=== PATIENT | male | born 1955 | race Two or more races ===

== ENCOUNTER 2023-05-30 19:42 | Emergency (ER) | payer BC, MEDICARE ==
[~2023-05-30] VITALS: Ht 170.2 cm; Wt 79.5 kg
[2023-05-30 19:52] VITALS: BP 195/96; RESP 18; O2SAT 97
[2023-05-30] MEDS ORDERED: cloNIDine HCL 0.1 MG TAB ONE (20:10)
[2023-05-30] MEDS ORDERED: cloNIDine HCL 0.1 MG TAB PO ONE (20:15)
[2023-05-30] MEDS ORDERED: METOCLOPRAMIDE HCL 5MG/ml INJ 2ml VIAL IV ONE (20:45)
[2023-05-30] MEDS ORDERED: MAGNESIUM SULFATE 1GM/100ML 100 ML IV ONE (20:45)
[2023-05-30] MEDS ORDERED: diphenhdrAMINE HCL 50 MG/1 ML VL IV ONE (20:45)
[2023-05-30 21:41] LABS: Basophils # (auto) 0.1 10 ^3/uL (0-0.2); Basophils % (auto) 0.7 % (0.0-2.0); Eosinophils # (auto) 0.2 10 ^3/uL (0-0.8); Eosinophils % (auto) 1.8 % (0.0-7.0); Hematocrit 43.9 % (41.0-53.0); Lymphocytes # (auto) 1.9 10 ^3/uL (0.4-5.4); Lymphocytes % (auto) 17.7 % (10.0-50.0); Mean Corpuscular Hemoglobin 30.1 pg (28.0-32.0); Mean Corpuscular Hgb Conc. 34.2 g/dL (32.0-36.0); Mean Corpuscular Volume 87.9 fL (80.0-100.0); Monocytes # (auto) 0.6 10 ^3/uL (0-1.3); Monocytes % (auto) 5.9 % (0.0-12.0); Neutrophils # (auto) 7.9 10 ^3/uL (1.6-8.6); Neutrophils % (auto) 73.9 % (37.0-80.0); Nucleated Red Blood Cells % 0.1 %; Red Cell Distribution Width 13.6 % (11.8-14.3); White Blood Cell 10.7 10^3/uL (4.4-10.8)
[2023-05-30 21:58] LABS: Alanine Aminotransferase 24 U/L (7-40); Albumin 4.5 g/dL (3.2-4.8); Alkaline Phosphatase 99 U/L (46-116); Anion Gap 8 (5-15); Aspartate Aminotransferase 13 U/L (13-40); BUN/Creatinine Ratio 8.8 (10.0-20.0); Bilirubin, Total 0.4 mg/dL (0.2-1.0); Blood Urea Nitrogen 12 mg/dL (9-23); Calcium 9.5 mg/dL (8.5-10.1); Carbon Dioxide 26 mmol/L (20-30); Chloride 103 mmol/L (98-107); Glucose 191 mg/dL (74-106); Sodium 137 mmol/L (136-145); Total Protein 7.6 g/dL (5.7-8.2)
[2023-05-30] MEDS ORDERED: hydrALAZINE HCL 20 MG/ML VL IV ONE (23:15)
[2023-05-30 23:27] VITALS: PULSE 56
== END 2023-05-31 02:41 | disposition left against medical advice (07) ==
LOC: ER 19:42
DX: R51.9 Headache, unspecified (principal); R11.0 Nausea; I10 Essential (primary) hypertension; Z88.8 Allergy status to other drugs, medicaments and biological substances
CPT/HCPCS: 36415; 70450; 80053; 85025; 93005

== ENCOUNTER → 2023-06-14 | Outpatient (CLI) | payer MEDICARE, BC | END | disposition home or self-care (01) | LOC: Rad HDHVI 13:03 | PROVIDERS: ATTEND Internal Medicine Cardiovascular Disease | DX: I10 Essential (primary) hypertension (principal) | CPT/HCPCS: 93306 ==

== ENCOUNTER → 2023-06-21 | Outpatient (CLI) | payer MEDICARE, BC | END | disposition home or self-care (01) | LOC: Rad HDHVI 12:59 | PROVIDERS: ATTEND Internal Medicine Cardiovascular Disease | DX: I10 Essential (primary) hypertension (principal) | CPT/HCPCS: 93880 ==

== ENCOUNTER → 2023-06-23 | Outpatient (CLI) | payer MEDICARE, BC ==
[~2023-06-23] VITALS: Ht 170.2 cm; Wt 83.9 kg
== END | disposition home or self-care (01) ==
LOC: Rad HDHVI 09:24
PROVIDERS: ATTEND Internal Medicine Cardiovascular Disease
DX: I10 Essential (primary) hypertension (principal); E11.9 Type 2 diabetes mellitus without complications; E78.00 Pure hypercholesterolemia, unspecified
CPT/HCPCS: 78452; 93017; 96374; A9500

== ENCOUNTER 2023-08-10 12:53 | Inpatient (IN) | payer MEDICARE, BC ==
[~2023-08-10] VITALS: Ht 170.2 cm; Wt 84.1 kg
[2023-08-10] MEDS ORDERED: IOHEXOL 350 MG/ML 100ML IJ ONE (13:13)
[2023-08-10 14:22] LABS: Basophils # (auto) 0.1 10 ^3/uL (0-0.2); Basophils % (auto) 0.7 % (0.0-2.0); Eosinophils # (auto) 0.3 10 ^3/uL (0-0.8); Eosinophils % (auto) 3.7 % (0.0-7.0); Hematocrit 43.4 % (41.0-53.0); Hemoglobin 14.7 g/dL (13.5-17.5); Lymphocytes % (auto) 26.6 % (10.0-50.0); Mean Corpuscular Hemoglobin 29.6 pg (28.0-32.0); Mean Corpuscular Hgb Conc. 33.8 g/dL (32.0-36.0); Mean Corpuscular Volume 87.5 fL (80.0-100.0); Monocytes # (auto) 0.7 10 ^3/uL (0-1.3); Monocytes % (auto) 8.9 % (0.0-12.0); Neutrophils # (auto) 4.6 10 ^3/uL (1.6-8.6); Neutrophils % (auto) 60.1 % (37.0-80.0); Nucleated Red Blood Cells % 0.1 %; Red Blood Cells 4.96 10^6/uL (4.5-5.90); Red Cell Distribution Width 13.8 % (11.8-14.3); White Blood Cell 7.6 10^3/uL (4.4-10.8)
[2023-08-10 14:41] LABS: Alanine Aminotransferase 21 U/L (7-40); Albumin 4.3 g/dL (3.2-4.8); Alkaline Phosphatase 101 U/L (46-116); Anion Gap 7 (5-15); Aspartate Aminotransferase 12 U/L (13-40); BUN/Creatinine Ratio 12.8 (10.0-20.0); Blood Urea Nitrogen 15 mg/dL (9-23); Calcium 8.7 mg/dL (8.7-10.4); Carbon Dioxide 26 mmol/L (20-30); Chloride 102 mmol/L (98-107); Glucose 177 mg/dL (74-106); Magnesium 1.9 mg/dL (1.6-2.6); Potassium 4.1 mmol/L (3.5-5.1); Sodium 135 mmol/L (136-145)
[2023-08-10 14:42] LABS: Bilirubin, Total 0.4 mg/dL (0.2-1.0); Total Protein 6.6 g/dL (5.7-8.2)
[2023-08-10 14:43] LABS: Partial Thromboplastin Time 29.4 SEC (24.5-34.5); Prothrombin Time 10.5 sec (9.3-11.8)
[2023-08-10] MEDS ORDERED: ASPirin 325 MG TAB PO ONE (14:45)
[2023-08-10 14:52] LABS: Lactic Acid w/Reflex 2.5 mmol/L (0.4-2.0)
[2023-08-10] MEDS ORDERED: SODIUM CHLORIDE 0.9% 1,000 ML IV ONE (15:15)
[2023-08-10] MEDS ORDERED: METH5TAB98 PO (15:35)
[2023-08-10] MEDS ORDERED: PANT40T PO (15:35)
[2023-08-10] MEDS ORDERED: PRAV20TA3 PO (15:35)
[2023-08-10] MEDS ORDERED: METO-289 PO (15:35)
[2023-08-10] MEDS ORDERED: OLME1TAB71 PO (15:35)
[2023-08-10] MEDS ORDERED: METF-370 PO (15:35)
[2023-08-10] MEDS ORDERED: MORPHINE SULFATE INJ 2 MG/ml SYRG IV PRN (17:30)
[2023-08-10] MEDS ORDERED: NITROGLYCERIN 0.4 MG SL TAB SL PRN (17:30)
[2023-08-10] MEDS ORDERED: SODIUM CHLORIDE 0.9% 1,000 ML IV SCH (17:30)
[2023-08-10] MEDS ORDERED: LORazepam 2MG/ML-1ML VIAL IV PRN (21:00)
[2023-08-10] MEDS ORDERED: PRAVASTATIN SODIUM 20 MG TAB PO SCH (22:00)
[2023-08-10 22:10] LABS: Triglycerides 565 mg/dL (< 150)
[2023-08-10 22:12] LABS: Cholesterol 190 mg/dL (< 200); HDL Cholesterol 35 mg/dL (40-59)
[2023-08-11] VITALS (9 sets, daily range): BP systolic 130–152; BP diastolic 74–93; PULSE 62–79; RESP 17–18; TEMP 96.3–98.1; O2SAT 95–100
[2023-08-11] MEDS ORDERED: S-AD400T6 OR (02:20)
[2023-08-11] MEDS ORDERED: OLME20TA53 PO (02:20)
[2023-08-11] MEDS ORDERED: GINK120C3 PO (02:20)
[2023-08-11] MEDS ORDERED: EZET-10 PO (02:20)
[2023-08-11] MEDS ORDERED: TURM500C3 OR (02:20)
[2023-08-11] MEDS ORDERED: CHOL500046 PO (02:20)
[2023-08-11] MEDS ORDERED: ALPR0.254 PO (02:20)
[2023-08-11] MEDS ORDERED: COEN400C8 OR (02:20)
[2023-08-11] MEDS ORDERED: CLOP75TA28 PO (02:20)
[2023-08-11] MEDS ORDERED: TRAM50TA2 PO (02:20)
[2023-08-11 05:48] LABS: Basophils # (auto) 0 10 ^3/uL (0-0.2); Basophils % (auto) 0.5 % (0.0-2.0); Eosinophils # (auto) 0.4 10 ^3/uL (0-0.8); Eosinophils % (auto) 4.5 % (0.0-7.0); Hematocrit 43.5 % (41.0-53.0); Lymphocytes # (auto) 2.9 10 ^3/uL (0.4-5.4); Lymphocytes % (auto) 34.7 % (10.0-50.0); Mean Corpuscular Hemoglobin 29.8 pg (28.0-32.0); Mean Corpuscular Hgb Conc. 34.4 g/dL (32.0-36.0); Mean Corpuscular Volume 86.8 fL (80.0-100.0); Monocytes # (auto) 0.9 10 ^3/uL (0-1.3); Monocytes % (auto) 10.7 % (0.0-12.0); Neutrophils # (auto) 4.1 10 ^3/uL (1.6-8.6); Neutrophils % (auto) 49.6 % (37.0-80.0); Nucleated Red Blood Cells % 0.1 %; Red Blood Cells 5.02 10^6/uL (4.5-5.90); Red Cell Distribution Width 13.4 % (11.8-14.3); White Blood Cell 8.4 10^3/uL (4.4-10.8)
[2023-08-11 06:14] LABS: Alanine Aminotransferase 18 U/L (7-40); Albumin 4.2 g/dL (3.2-4.8); Alkaline Phosphatase 93 U/L (46-116); Anion Gap 8 (5-15); Aspartate Aminotransferase 12 U/L (13-40); BUN/Creatinine Ratio 8.9 (10.0-20.0); Blood Urea Nitrogen 11 mg/dL (9-23); Calcium 9.1 mg/dL (8.5-10.1); Carbon Dioxide 27 mmol/L (20-30); Chloride 105 mmol/L (98-107); Glucose 107 mg/dL (74-106); Potassium 4.1 mmol/L (3.5-5.1); Sodium 140 mmol/L (136-145)
[2023-08-11 06:15] LABS: Bilirubin, Total 0.5 mg/dL (0.2-1.0); Total Protein 6.7 g/dL (5.7-8.2)
[2023-08-11] MEDS ORDERED: PANTOPRAZOLE 40 MG TAB PO SCH (10:00)
[2023-08-11] MEDS ORDERED: ASPirin 81 mg TAB PO SCH (10:00)
[2023-08-11] MEDS ORDERED: LOSARTAN POTASSIUM 50 MG TAB PO SCH (10:00)
[2023-08-11] MEDS ORDERED: metFORMIN HYDROCHLORIDE 500 MG TAB PO SCH (10:00)
[2023-08-11] MEDS ORDERED: CLOPIDOGREL BISULFATE 75 MG TAB PO SCH (10:00)
[2023-08-11] MEDS ORDERED: METOPROLOL SUCCINATE XL 50 MG TAB PO SCH (10:00)
== END 2023-08-11 16:05 | disposition home or self-care (01) | DRG 93 ==
LOC: ER 12:53 → TELE 18:00 → TELE-EAST 23:20
PROVIDERS: ADMIT Internal Medicine Cardiovascular Disease; ATTEND Internal Medicine Cardiovascular Disease
DX: R29.810 Facial weakness (principal); G47.10 Hypersomnia, unspecified; R56.9 Unspecified convulsions; G44.009 Cluster headache syndrome, unspecified, not intractable; I10 Essential (primary) hypertension; R26.81 Unsteadiness on feet; R13.10 Dysphagia, unspecified; E11.9 Type 2 diabetes mellitus without complications; E66.9 Obesity, unspecified; E03.9 Hypothyroidism, unspecified; G47.30 Sleep apnea, unspecified; E78.5 Hyperlipidemia, unspecified; F17.200 Nicotine dependence, unspecified, uncomplicated; Z79.02 Long term (current) use of antithrombotics/antiplatelets; Z86.73 Personal history of transient ischemic attack (TIA), and cerebral infarction without residual deficits; Z79.899 Other long term (current) drug therapy; Z68.29 Body mass index [BMI] 29.0-29.9, adult; Z83.3 Family history of diabetes mellitus
CPT/HCPCS: 36415; 70450; 70496; 70551; 71045; 80053; 80061; 83605; 83735; 83880; 84484; 85025; 85610; 85730; 93005; 93886; 96360; G0378

== ENCOUNTER → 2023-09-25 | Outpatient (CLI) | payer MEDICARE, BC ==
[~2023-09-25] MED LIST: ALPR0.254 PO; CHOL500046 PO; CLOP75TA28 PO; COEN400C8 OR; EZET-10 PO; GINK120C3 PO; METF-370 PO; METH5TAB98 PO; METO-289 PO; OLME1TAB71 PO; OLME20TA53 PO; PANT40T PO; S-AD400T6 OR; TRAM50TA2 PO; TURM500C3 OR
[2023-09-25 11:19] VITALS: BP 140/84; PULSE 75
[2023-09-25 11:20] VITALS: BP 133/82; PULSE 77
== END | disposition home or self-care (01) ==
LOC: CHF HDHVI 09:45
PROVIDERS: ATTEND Internal Medicine Cardiovascular Disease
DX: I25.118 Atherosclerotic heart disease of native coronary artery with other forms of angina pectoris (principal); I73.9 Peripheral vascular disease, unspecified; E11.9 Type 2 diabetes mellitus without complications; E78.00 Pure hypercholesterolemia, unspecified; I10 Essential (primary) hypertension; R06.02 Shortness of breath; Z98.61 Coronary angioplasty status
CPT/HCPCS: G0166

== ENCOUNTER → 2023-09-26 | Outpatient (CLI) | payer MEDICARE, BC ==
[2023-09-26 13:31] VITALS: BP 139/81; PULSE 68
[2023-09-26 13:32] VITALS: BP 155/88; PULSE 71
== END | disposition home or self-care (01) ==
LOC: CHF HDHVI 09:53
PROVIDERS: ATTEND Internal Medicine Cardiovascular Disease
DX: I25.118 Atherosclerotic heart disease of native coronary artery with other forms of angina pectoris (principal); I73.9 Peripheral vascular disease, unspecified; E11.9 Type 2 diabetes mellitus without complications; I10 Essential (primary) hypertension; E29.1 Testicular hypofunction; Z79.84 Long term (current) use of oral hypoglycemic drugs; Z79.899 Other long term (current) drug therapy
CPT/HCPCS: G0166

== ENCOUNTER → 2023-09-27 | Outpatient (CLI) | payer MEDICARE, BC ==
[2023-09-27 14:44] VITALS: BP 140/85; PULSE 74
[2023-09-27 14:46] VITALS: BP 140/80; PULSE 76
== END | disposition home or self-care (01) ==
LOC: CHF HDHVI 13:01
PROVIDERS: ATTEND Internal Medicine Cardiovascular Disease
DX: I25.118 Atherosclerotic heart disease of native coronary artery with other forms of angina pectoris (principal); R06.02 Shortness of breath; E11.9 Type 2 diabetes mellitus without complications; I10 Essential (primary) hypertension; E78.00 Pure hypercholesterolemia, unspecified; I73.9 Peripheral vascular disease, unspecified
CPT/HCPCS: G0166

== ENCOUNTER → 2023-09-28 | Outpatient (CLI) | payer MEDICARE, BC ==
[2023-09-28 14:48] VITALS: BP 130/71; PULSE 64
[2023-09-28 14:49] VITALS: BP 122/78; PULSE 65
== END | disposition home or self-care (01) ==
LOC: CHF HDHVI 13:03
PROVIDERS: ATTEND Internal Medicine Cardiovascular Disease
DX: I25.118 Atherosclerotic heart disease of native coronary artery with other forms of angina pectoris (principal); I11.0 Hypertensive heart disease with heart failure; I50.33 Acute on chronic diastolic (congestive) heart failure; E78.00 Pure hypercholesterolemia, unspecified; E11.9 Type 2 diabetes mellitus without complications; I73.9 Peripheral vascular disease, unspecified; R06.02 Shortness of breath; Z95.1 Presence of aortocoronary bypass graft
CPT/HCPCS: G0166

== ENCOUNTER → 2023-09-29 | Outpatient (CLI) | payer MEDICARE, BC ==
[2023-09-29 15:12] VITALS: BP_SYST 120; BP_SYST 130; BP_DIAS 68; BP_DIAS 85; PULSE 65; PULSE 71
== END | disposition home or self-care (01) ==
LOC: CHF HDHVI 13:01
PROVIDERS: ATTEND Internal Medicine Cardiovascular Disease
DX: I11.0 Hypertensive heart disease with heart failure (principal); I50.33 Acute on chronic diastolic (congestive) heart failure; I25.118 Atherosclerotic heart disease of native coronary artery with other forms of angina pectoris; E11.9 Type 2 diabetes mellitus without complications; I73.9 Peripheral vascular disease, unspecified; E78.00 Pure hypercholesterolemia, unspecified
CPT/HCPCS: G0166

== ENCOUNTER → 2023-10-05 | Outpatient (CLI) | payer MEDICARE, BC ==
[2023-10-05 14:06] VITALS: BP 144/84; PULSE 67
[2023-10-05 14:23] VITALS: BP 142/73; PULSE 71
== END | disposition home or self-care (01) ==
LOC: CHF HDHVI 13:10
PROVIDERS: ATTEND Internal Medicine Cardiovascular Disease
DX: I25.118 Atherosclerotic heart disease of native coronary artery with other forms of angina pectoris (principal); I11.0 Hypertensive heart disease with heart failure; I50.33 Acute on chronic diastolic (congestive) heart failure; E78.00 Pure hypercholesterolemia, unspecified; I73.9 Peripheral vascular disease, unspecified; E11.9 Type 2 diabetes mellitus without complications; R06.02 Shortness of breath; Z98.61 Coronary angioplasty status
CPT/HCPCS: G0166

== ENCOUNTER → 2023-10-06 | Outpatient (CLI) | payer MEDICARE, BC ==
[2023-10-06 14:33] VITALS: BP 140/80; PULSE 72
[2023-10-06 14:34] VITALS: BP 140/85; PULSE 68
== END | disposition home or self-care (01) ==
LOC: CHF HDHVI 12:59
PROVIDERS: ATTEND Internal Medicine Cardiovascular Disease
DX: I11.0 Hypertensive heart disease with heart failure (principal); I50.33 Acute on chronic diastolic (congestive) heart failure; I25.118 Atherosclerotic heart disease of native coronary artery with other forms of angina pectoris; E11.9 Type 2 diabetes mellitus without complications; I73.9 Peripheral vascular disease, unspecified; E78.00 Pure hypercholesterolemia, unspecified
CPT/HCPCS: G0166

== ENCOUNTER → 2023-10-09 | Outpatient (CLI) | payer MEDICARE, BC ==
[2023-10-09 15:23] VITALS: BP 148/85; PULSE 66
[2023-10-09 15:24] VITALS: BP 128/80; PULSE 70
== END | disposition home or self-care (01) ==
LOC: CHF HDHVI 12:58
PROVIDERS: ATTEND Internal Medicine Cardiovascular Disease
DX: I11.0 Hypertensive heart disease with heart failure (principal); I50.33 Acute on chronic diastolic (congestive) heart failure; I25.118 Atherosclerotic heart disease of native coronary artery with other forms of angina pectoris; E11.9 Type 2 diabetes mellitus without complications; I73.9 Peripheral vascular disease, unspecified; E78.00 Pure hypercholesterolemia, unspecified
CPT/HCPCS: G0166

== ENCOUNTER → 2023-10-10 | Outpatient (CLI) | payer MEDICARE, BC ==
[2023-10-10 14:49] VITALS: BP 118/81; PULSE 62
[2023-10-10 14:51] VITALS: BP 139/86; PULSE 75
== END | disposition home or self-care (01) ==
LOC: CHF HDHVI 10:35
PROVIDERS: ATTEND Internal Medicine Cardiovascular Disease
DX: I11.0 Hypertensive heart disease with heart failure (principal); I50.33 Acute on chronic diastolic (congestive) heart failure; I25.118 Atherosclerotic heart disease of native coronary artery with other forms of angina pectoris; E11.9 Type 2 diabetes mellitus without complications; E78.00 Pure hypercholesterolemia, unspecified; I73.9 Peripheral vascular disease, unspecified
CPT/HCPCS: G0166

== ENCOUNTER → 2023-10-23 | Outpatient (CLI) | payer MEDICARE, BC ==
[2023-10-23 14:06] VITALS: BP 141/80; PULSE 75
[2023-10-23 14:25] VITALS: BP 142/89; PULSE 78
== END | disposition home or self-care (01) ==
LOC: CHF HDHVI 13:01
PROVIDERS: ATTEND Internal Medicine Cardiovascular Disease
DX: I25.118 Atherosclerotic heart disease of native coronary artery with other forms of angina pectoris (principal); R06.02 Shortness of breath; E11.9 Type 2 diabetes mellitus without complications; Z98.61 Coronary angioplasty status
CPT/HCPCS: G0166

== ENCOUNTER → 2023-10-25 | Outpatient (CLI) | payer MEDICARE, BC ==
[2023-10-25 14:12] VITALS: BP 141/85; PULSE 62
[2023-10-25 14:21] VITALS: BP 160/90; PULSE 68
== END | disposition home or self-care (01) ==
LOC: CHF HDHVI 13:18
PROVIDERS: ATTEND Internal Medicine Cardiovascular Disease
DX: I25.118 Atherosclerotic heart disease of native coronary artery with other forms of angina pectoris (principal); I11.0 Hypertensive heart disease with heart failure; I50.43 Acute on chronic combined systolic (congestive) and diastolic (congestive) heart failure; R07.89 Other chest pain; I25.5 Ischemic cardiomyopathy
CPT/HCPCS: G0166

== ENCOUNTER → 2023-10-26 | Outpatient (CLI) | payer MEDICARE, BC ==
[2023-10-26 14:07] VITALS: BP 145/87; PULSE 68
[2023-10-26 14:08] VITALS: BP 136/82; PULSE 81
== END | disposition home or self-care (01) ==
LOC: CHF HDHVI 12:47
PROVIDERS: ATTEND Internal Medicine Cardiovascular Disease
DX: I25.118 Atherosclerotic heart disease of native coronary artery with other forms of angina pectoris (principal); I10 Essential (primary) hypertension; E11.9 Type 2 diabetes mellitus without complications; I73.9 Peripheral vascular disease, unspecified; E78.00 Pure hypercholesterolemia, unspecified
CPT/HCPCS: G0166

== ENCOUNTER → 2023-10-27 | Outpatient (CLI) | payer MEDICARE, BC ==
[2023-10-27 12:27] VITALS: BP 139/81; PULSE 67
[2023-10-27 13:08] VITALS: BP 148/85; PULSE 66
== END | disposition home or self-care (01) ==
LOC: CHF HDHVI 11:44
PROVIDERS: ATTEND Internal Medicine Cardiovascular Disease
DX: I25.118 Atherosclerotic heart disease of native coronary artery with other forms of angina pectoris (principal); I10 Essential (primary) hypertension; E78.00 Pure hypercholesterolemia, unspecified; I73.9 Peripheral vascular disease, unspecified; E11.9 Type 2 diabetes mellitus without complications
CPT/HCPCS: G0166

== ENCOUNTER → 2023-10-30 | Outpatient (CLI) | payer MEDICARE, BC ==
[2023-10-30 14:27] VITALS: BP 135/79; PULSE 70
[2023-10-30 14:28] VITALS: BP 121/82; PULSE 79
== END | disposition home or self-care (01) ==
LOC: CHF HDHVI 13:07
PROVIDERS: ATTEND Internal Medicine Cardiovascular Disease
DX: I25.118 Atherosclerotic heart disease of native coronary artery with other forms of angina pectoris (principal); I10 Essential (primary) hypertension; E11.9 Type 2 diabetes mellitus without complications; I73.9 Peripheral vascular disease, unspecified; E29.1 Testicular hypofunction
CPT/HCPCS: G0166

== ENCOUNTER → 2023-11-02 | Outpatient (CLI) | payer MEDICARE, BC ==
[~2023-11-02] MED LIST changes: -OLME1TAB71 PO; +OLME20TA67 PO
[2023-11-02 15:09] VITALS: BP 135/80; PULSE 65
[2023-11-02 15:10] VITALS: BP 124/88; PULSE 66
== END | disposition home or self-care (01) ==
LOC: CHF HDHVI 13:01
PROVIDERS: ATTEND Internal Medicine Cardiovascular Disease
DX: I25.118 Atherosclerotic heart disease of native coronary artery with other forms of angina pectoris (principal); I10 Essential (primary) hypertension; E11.9 Type 2 diabetes mellitus without complications; E78.00 Pure hypercholesterolemia, unspecified; I73.9 Peripheral vascular disease, unspecified
CPT/HCPCS: G0166

== ENCOUNTER → 2024-05-02 | Outpatient (CLI) | payer MEDICARE, BC | END | disposition home or self-care (01) | LOC: Rad HDHVI 10:55 | PROVIDERS: ATTEND Internal Medicine Cardiovascular Disease | DX: M47.812 Spondylosis without myelopathy or radiculopathy, cervical region (principal) | CPT/HCPCS: 70450; 72125 ==

== ENCOUNTER → 2024-05-17 | Outpatient (CLI) | payer MEDICARE, BC | END | disposition home or self-care (01) | LOC: Rad HDHVI 10:49 | PROVIDERS: ATTEND Internal Medicine Cardiovascular Disease | DX: I11.0 Hypertensive heart disease with heart failure (principal); I50.23 Acute on chronic systolic (congestive) heart failure | CPT/HCPCS: 93306 ==

== ENCOUNTER → 2024-09-02 | Outpatient (CLI) | payer MEDICARE, BC ==
[2024-09-02 15:05] VITALS: BP 187/107; PULSE 76; RESP 20; O2SAT 96
[2024-09-02] MEDS: cloNIDine HCL 0.1 MG TAB PO ONE (15:15)
[2024-09-02] MEDS: cloNIDine HCL 0.1 MG TAB ONE (15:15)
[2024-09-02 15:39] VITALS: BP 185/100; PULSE 78; RESP 20; O2SAT 96
--- NOTE | 2024-09-03 14:08 | DVH ---
CT brain without contrast CLINICAL INDICATION: Altered mental status Comparison: 04/1924 FINDINGS: The study was performed in a multidetector scanner. This study performed taking axial imag es from the skull base up to the vertex. Both brain and bone windows are photographed. Dose lowering techniques have been used including automated exposure control and adjustment of mA and /or KV according to patient size. No areas of hemorrhage or edema in the brain parenchyma. No hydrocephalus. No midline shift. No extra-axial fluid collections Cortical sulcal markings are prominent On bone windows no calvarial lesions or paranasal sinus lesion IMPRESSION: 1.No acute intracranial pathology. Mild atrophy. Computed Tomographic Radiation Dosimetry Report: Total CTDI vol = 52 mGy Total DLP = 936 mGy-cm All CT scans at this medical facility are performed using dose modulation techniques as appropriate t o a performed exam including the following: Automated exposure control was utilized; adjustment of the MA and/or KvP according to patient size; a nd use of iterative reconstruction technique.
== END | disposition home or self-care (01) ==
LOC: Rad HDHVI 15:08
PROVIDERS: ATTEND Internal Medicine Cardiovascular Disease
DX: G31.9 Degenerative disease of nervous system, unspecified (principal); E11.9 Type 2 diabetes mellitus without complications; I10 Essential (primary) hypertension; G45.9 Transient cerebral ischemic attack, unspecified; R11.0 Nausea; R41.3 Other amnesia
CPT/HCPCS: 70450; G0463

== ENCOUNTER → 2024-12-11 | Outpatient (CLI) | payer MEDICARE, BC | END | disposition home or self-care (01) | LOC: Rad HDHVI 07:59 | PROVIDERS: ATTEND Internal Medicine Cardiovascular Disease | DX: I10 Essential (primary) hypertension (principal); R00.1 Bradycardia, unspecified; E78.5 Hyperlipidemia, unspecified; E11.9 Type 2 diabetes mellitus without complications; Z86.73 Personal history of transient ischemic attack (TIA), and cerebral infarction without residual deficits | CPT/HCPCS: 93880 ==

== ENCOUNTER → 2024-12-17 | Outpatient (CLI) | payer MEDICARE, BC ==
[2024-12-17 15:02] VITALS: BP 132/80; PULSE 64
[2024-12-17 15:03] VITALS: BP 128/83; PULSE 64
== END | disposition home or self-care (01) ==
LOC: CHF HDHVI 10:54
PROVIDERS: ATTEND Internal Medicine Cardiovascular Disease
DX: I25.118 Atherosclerotic heart disease of native coronary artery with other forms of angina pectoris (principal); I50.33 Acute on chronic diastolic (congestive) heart failure; Z98.61 Coronary angioplasty status; Z86.73 Personal history of transient ischemic attack (TIA), and cerebral infarction without residual deficits
CPT/HCPCS: G0166

== ENCOUNTER → 2024-12-24 | Outpatient (CLI) | payer MEDICARE, BC ==
[2024-12-24 13:15] VITALS: BP_SYST 119; BP_SYST 125; BP_DIAS 81; BP_DIAS 84; PULSE 59; PULSE 65
== END | disposition home or self-care (01) ==
LOC: CHF HDHVI 10:55
PROVIDERS: ATTEND Internal Medicine Cardiovascular Disease
DX: I25.118 Atherosclerotic heart disease of native coronary artery with other forms of angina pectoris (principal); I50.33 Acute on chronic diastolic (congestive) heart failure; Z86.73 Personal history of transient ischemic attack (TIA), and cerebral infarction without residual deficits; Z98.61 Coronary angioplasty status
CPT/HCPCS: G0166

== ENCOUNTER → 2024-12-26 | Outpatient (CLI) | payer MEDICARE, BC ==
[2024-12-26 14:57] VITALS: BP 124/80; PULSE 58
[2024-12-26 14:58] VITALS: BP 123/85; PULSE 60
== END | disposition home or self-care (01) ==
LOC: CHF HDHVI 10:55
PROVIDERS: ATTEND Internal Medicine Cardiovascular Disease
DX: I25.118 Atherosclerotic heart disease of native coronary artery with other forms of angina pectoris (principal); I50.33 Acute on chronic diastolic (congestive) heart failure; Z98.61 Coronary angioplasty status; Z86.73 Personal history of transient ischemic attack (TIA), and cerebral infarction without residual deficits
CPT/HCPCS: G0166

== ENCOUNTER → 2024-12-31 | Outpatient (CLI) | payer MEDICARE, BC ==
[2024-12-31 13:00] VITALS: BP 134/80; PULSE 80
[2024-12-31 13:01] VITALS: BP 136/78; PULSE 74
== END | disposition home or self-care (01) ==
LOC: CHF HDHVI 10:56
PROVIDERS: ATTEND Internal Medicine Cardiovascular Disease
DX: I25.118 Atherosclerotic heart disease of native coronary artery with other forms of angina pectoris (principal); I50.33 Acute on chronic diastolic (congestive) heart failure; Z86.73 Personal history of transient ischemic attack (TIA), and cerebral infarction without residual deficits; Z98.61 Coronary angioplasty status
CPT/HCPCS: G0166

== ENCOUNTER → 2025-01-02 | Outpatient (CLI) | payer MEDICARE, BC ==
[2025-01-02 12:58] VITALS: BP_SYST 125; BP_SYST 127; BP_DIAS 69; BP_DIAS 84; PULSE 71; PULSE 75
== END | disposition home or self-care (01) ==
LOC: CHF HDHVI 10:55
PROVIDERS: ATTEND Internal Medicine Cardiovascular Disease
DX: I25.118 Atherosclerotic heart disease of native coronary artery with other forms of angina pectoris (principal); I50.33 Acute on chronic diastolic (congestive) heart failure; Z98.61 Coronary angioplasty status; Z86.73 Personal history of transient ischemic attack (TIA), and cerebral infarction without residual deficits
CPT/HCPCS: G0166

== ENCOUNTER → 2025-01-07 | Outpatient (CLI) | payer MEDICARE, BC ==
[2025-01-07 13:06] VITALS: BP 126/76; PULSE 62
[2025-01-07 13:07] VITALS: BP 127/83; PULSE 81
== END | disposition home or self-care (01) ==
LOC: CHF HDHVI 10:54
PROVIDERS: ATTEND Internal Medicine Cardiovascular Disease
DX: I25.118 Atherosclerotic heart disease of native coronary artery with other forms of angina pectoris (principal); I50.33 Acute on chronic diastolic (congestive) heart failure; Z98.61 Coronary angioplasty status; Z86.73 Personal history of transient ischemic attack (TIA), and cerebral infarction without residual deficits
CPT/HCPCS: G0166

== ENCOUNTER 2025-01-16 10:55 | Outpatient (CLI) | payer MEDICARE, BC ==
[2025-01-16 13:02] VITALS: BP_SYST 119; BP_SYST 122; BP_DIAS 79; BP_DIAS 80; PULSE 64; PULSE 72
== END 2025-01-16 17:00 | disposition home or self-care (01) ==
LOC: CHF HDHVI 10:55
PROVIDERS: ATTEND Internal Medicine Cardiovascular Disease
DX: I25.118 Atherosclerotic heart disease of native coronary artery with other forms of angina pectoris (principal); I50.33 Acute on chronic diastolic (congestive) heart failure; Z86.73 Personal history of transient ischemic attack (TIA), and cerebral infarction without residual deficits; Z98.61 Coronary angioplasty status
CPT/HCPCS: G0166

== ENCOUNTER 2025-01-28 09:54 | Outpatient (CLI) | payer MEDICARE, BC ==
[2025-01-28 13:02] VITALS: BP_SYST 130; BP_SYST 134; BP_DIAS 84; BP_DIAS 89; PULSE 70; PULSE 88
== END 2025-01-28 17:00 | disposition home or self-care (01) ==
LOC: Rad HDHVI 09:54
PROVIDERS: ATTEND Internal Medicine Cardiovascular Disease
DX: I34.0 Nonrheumatic mitral (valve) insufficiency (principal); I11.0 Hypertensive heart disease with heart failure; I50.33 Acute on chronic diastolic (congestive) heart failure; I25.118 Atherosclerotic heart disease of native coronary artery with other forms of angina pectoris
CPT/HCPCS: 93306; G0166

== ENCOUNTER 2025-01-30 11:02 | Outpatient (CLI) | payer MEDICARE, BC ==
[2025-01-30 12:21] VITALS: BP_SYST 135; BP_SYST 137; BP_DIAS 79; BP_DIAS 84; PULSE 56; PULSE 83
== END 2025-01-30 17:00 | disposition home or self-care (01) ==
LOC: CHF HDHVI 11:02
PROVIDERS: ATTEND Internal Medicine Cardiovascular Disease
DX: I25.118 Atherosclerotic heart disease of native coronary artery with other forms of angina pectoris (principal); I50.33 Acute on chronic diastolic (congestive) heart failure; Z86.73 Personal history of transient ischemic attack (TIA), and cerebral infarction without residual deficits; Z98.61 Coronary angioplasty status
CPT/HCPCS: G0166

== ENCOUNTER 2025-02-03 09:00 | Outpatient (CLI) | payer MEDICARE, BC ==
[2025-02-03 15:38] VITALS: BP_SYST 117; BP_SYST 119; BP_DIAS 68; BP_DIAS 78; PULSE 61; PULSE 78
== END 2025-02-03 17:00 | disposition home or self-care (01) ==
LOC: CHF HDHVI 09:00
PROVIDERS: ATTEND Internal Medicine Cardiovascular Disease
DX: I25.118 Atherosclerotic heart disease of native coronary artery with other forms of angina pectoris (principal); I50.33 Acute on chronic diastolic (congestive) heart failure; Z86.73 Personal history of transient ischemic attack (TIA), and cerebral infarction without residual deficits; Z98.61 Coronary angioplasty status
CPT/HCPCS: G0166

== ENCOUNTER 2025-02-11 11:00 | Outpatient (CLI) | payer MEDICARE, BC ==
[2025-02-11 15:23] VITALS: BP_SYST 124; BP_SYST 128; BP_DIAS 75; BP_DIAS 79; PULSE 74; PULSE 80
== END 2025-02-11 17:00 | disposition home or self-care (01) ==
LOC: CHF HDHVI 11:00
PROVIDERS: ATTEND Internal Medicine Cardiovascular Disease
DX: I25.118 Atherosclerotic heart disease of native coronary artery with other forms of angina pectoris (principal); I50.33 Acute on chronic diastolic (congestive) heart failure; Z98.61 Coronary angioplasty status; Z86.73 Personal history of transient ischemic attack (TIA), and cerebral infarction without residual deficits
CPT/HCPCS: G0166

== ENCOUNTER → 2025-02-12 | Outpatient (CLI) | payer MEDICARE, BC ==
[~2025-02-12] MED LIST changes: +METH4PAK PO
== END | disposition home or self-care (01) ==
LOC: Rad HDHVI 14:26
PROVIDERS: ATTEND Internal Medicine Cardiovascular Disease
DX: G45.9 Transient cerebral ischemic attack, unspecified (principal); R42 Dizziness and giddiness
CPT/HCPCS: 93880

== ENCOUNTER → 2025-02-20 | Outpatient (CLI) | payer MEDICARE, BC ==
[~2025-02-20] MED LIST changes: -METH4PAK PO
[2025-02-20 13:14] VITALS: BP_SYST 119; BP_SYST 124; BP_DIAS 84; BP_DIAS 87; PULSE 67; PULSE 73
== END | disposition home or self-care (01) ==
LOC: CHF HDHVI 11:23
PROVIDERS: ATTEND Internal Medicine Cardiovascular Disease
DX: I25.118 Atherosclerotic heart disease of native coronary artery with other forms of angina pectoris (principal); I50.33 Acute on chronic diastolic (congestive) heart failure; Z86.73 Personal history of transient ischemic attack (TIA), and cerebral infarction without residual deficits; Z98.61 Coronary angioplasty status
CPT/HCPCS: G0166

== ENCOUNTER 2025-02-25 11:00 | Outpatient (CLI) | payer MEDICARE, BC ==
[2025-02-25 13:20] VITALS: BP 128/69; PULSE 54
[2025-02-25 13:21] VITALS: BP 131/84; PULSE 72
== END 2025-02-25 17:00 | disposition home or self-care (01) ==
LOC: CHF HDHVI 11:00
PROVIDERS: ATTEND Internal Medicine Cardiovascular Disease
DX: I25.118 Atherosclerotic heart disease of native coronary artery with other forms of angina pectoris (principal); I50.33 Acute on chronic diastolic (congestive) heart failure; Z86.73 Personal history of transient ischemic attack (TIA), and cerebral infarction without residual deficits; Z98.61 Coronary angioplasty status
CPT/HCPCS: G0166

== ENCOUNTER 2025-02-27 10:56 | Outpatient (CLI) | payer MEDICARE, BC ==
[2025-02-27 15:13] VITALS: BP 126/72; PULSE 60
[2025-02-27 15:14] VITALS: BP 121/74; PULSE 91
== END 2025-02-27 17:00 | disposition home or self-care (01) ==
LOC: CHF HDHVI 10:56
PROVIDERS: ATTEND Internal Medicine Cardiovascular Disease
DX: I25.118 Atherosclerotic heart disease of native coronary artery with other forms of angina pectoris (principal); I50.33 Acute on chronic diastolic (congestive) heart failure; Z98.61 Coronary angioplasty status; Z86.73 Personal history of transient ischemic attack (TIA), and cerebral infarction without residual deficits
CPT/HCPCS: G0166

== ENCOUNTER 2025-03-04 10:56 | Outpatient (CLI) | payer MEDICARE, BC ==
[2025-03-04 15:12] VITALS: BP_SYST 123; BP_SYST 126; BP_DIAS 80; BP_DIAS 87; PULSE 83; PULSE 84
== END 2025-03-04 17:00 | disposition home or self-care (01) ==
LOC: CHF HDHVI 10:56
PROVIDERS: ATTEND Internal Medicine Cardiovascular Disease
DX: I25.118 Atherosclerotic heart disease of native coronary artery with other forms of angina pectoris (principal); I50.33 Acute on chronic diastolic (congestive) heart failure; Z98.61 Coronary angioplasty status; Z86.73 Personal history of transient ischemic attack (TIA), and cerebral infarction without residual deficits
CPT/HCPCS: G0166

== ENCOUNTER 2025-03-05 10:39 | Outpatient (CLI) | payer MEDICARE, BC ==
[2025-03-05 10:40] VITALS: BP 129/77; PULSE 64; RESP 16; O2SAT 97
[2025-03-05] MEDS: IRON SUCROSE 20 mg/ml 10ml VIAL IV ONE (11:04)
[2025-03-05] MEDS: IRON SUCROSE COMPLEX 110 ML IV ONE (11:24)
[2025-03-05 12:31] VITALS: BP 140/80; PULSE 80; RESP 16; O2SAT 97
[2025-03-05 14:51] VITALS: BP 129/77; PULSE 64
[2025-03-05 14:52] VITALS: BP 140/80; PULSE 80
== END 2025-03-05 17:00 | disposition home or self-care (01) ==
LOC: CHF HDHVI 10:39
PROVIDERS: ATTEND Internal Medicine Cardiovascular Disease
DX: D50.9 Iron deficiency anemia, unspecified (principal); I25.118 Atherosclerotic heart disease of native coronary artery with other forms of angina pectoris; I11.0 Hypertensive heart disease with heart failure; I50.33 Acute on chronic diastolic (congestive) heart failure; E11.9 Type 2 diabetes mellitus without complications; E78.5 Hyperlipidemia, unspecified; Z98.61 Coronary angioplasty status; Z86.73 Personal history of transient ischemic attack (TIA), and cerebral infarction without residual deficits
CPT/HCPCS: 96365; G0166; G0463; J1756

== ENCOUNTER 2025-04-14 21:07 | Emergency (ER) | payer MEDICARE, BC ==
[~2025-04-14] VITALS: Ht 170.2 cm; Wt 81.0 kg
--- NOTE | 2025-04-14 21:54 | DVH ---
CLINICAL INDICATION: INJURY TECHNIQUE: 3 radiographic views of the right knee were obtained. Comparison: None FINDINGS/IMPRESSION: Bony alignment is normal There are no fractures or dislocations. There is no joint effusion. Spurring of the tibial spines.
[2025-04-14] MEDS ORDERED: KETOROLAC TROMETH 60MG/2ML VIAL IM ONE (22:45)
--- NOTE | 2025-04-14 22:49 | ED.PDOC ---
Back pain HPI HPI Comments 70-year-old male presents to the ED status post fall earlier today. Patient states trip and fall landing on his right knee. Complaining of swelling and right knee pain pressure and sharp in his shooting up his right leg into his groin 10/10 on pain scale. The counter medications with little relief. Patient is ambulating however with a limping gait favoring right leg. Denies numbness, weakness, or any other known injury. Chief Complaint: Lower Extremity Time Seen by MD: 21:35 Primary Care Provider: BALDOMERO Reviewed Notes: Nurses Notes, Medications, Allergies Allergies: Coded Allergies: Cetirizine (Verified Allergy, Unknown, 05/30/23) Home Meds Active Scripts Methylprednisolone (Medrol Dosepak) 4 Mg Jian, 4 MG PO UD for 6 Days, #21 TAB UAD Prov:LALY CHI SKILLED NURSING FACILITY COUNSELOR 04/14/25 Reported Medications Coenzyme Q10 (Ubidecarenone) (COQ-10) 400 Mg Cap, 900 MG OR, CAP 08/11/23 Curcuma Longa (Turmeric) Extra (TURMERIC) 500 Mg Cap, 3000 MG OR, CAP 08/11/23 S-Adenosylmethionine (EYAL E) 400 Mg Tab, 400 MG OR, TAB 08/11/23 Cholecalciferol (D3 5000) 5,000 Unit Cap, 5000 UNIT PO, CAP 08/11/23 Ginkgo Biloba Extract (Ginkgo Biloba) 120 Mg Cap, 120 MG PO, CAP 08/11/23 Alprazolam (Alprazolam) 0.25 Mg Tab, 1 TAB PO DAILY for anxiety, #30 TAB 08/11/23 Tramadol Hcl (Tramadol Hcl) 50 Mg Tab, 50 MG PO Q6HP PRN for FOR INSOMNIA, MG 08/11/23 Clopidogrel Bisulfate (Plavix) 75 Mg Tab, 1 TAB PO DAILY, #90 TAB 1 Refill 08/11/23 Olmesartan Medoxomil (Benicar) 20 Mg Tab, 1 TAB PO DAILY, #30 TAB 5 Refills 08/11/23 Ezetimibe (Ezetimibe) 10 Mg Tab, 10 MG PO DAILY 08/11/23 Olmesartan Medoxomil (Olmesartan Medoxomil) 20 Mg Tab, 1 TAB PO DAILY 08/10/23 Metoprolol Succinate (Metoprolol Succinate Er) 50 Mg Tab, 50 PO 08/10/23 Methimazole (Methimazole) 5 Mg Tab, 5 PO 08/10/23 Metformin Hydrochloride (Metformin Hcl) 500 Mg Tab, 500 PO 08/10/23 Pantoprazole Sodium Sesquihydr (Pantoprazole Sodium) 40 Mg Tab, 40 PO 08/10/23 Information Source: Patient Mode of Arrival: Ambulatory Past Medical History PAST MEDICAL HISTORY: HTN, Thyroid Surgical History: Denies all surgeries Family History Family History: Reviewed,noncontributory to illness Social History Smoker: Non-Smoker Alcohol: Denies ETOH Use Drugs: Denies Drug Use Lives In: Home All Other Systems: Reviewed and Negative (see hpi) Physical Exam General Appearance: No Apparent Distress, Normal HEENT: Pharynx Normal Neck: Full Range of Motion, Non-Tender Respiratory: Lungs Clear, No Respiratory Distress, Normal Breath Sounds Cardiovascular: No Edema, No JVD, No Murmur, No Gallop, Normal Peripheral Puls es, Regular Rate/Rhythm Breast Exam: Deferred Gastrointestinal: No Organomegaly, Non Tender, No Pulsatile Mass, Normal Bowel Sounds, Soft Genitalia: Deferred Pelvic: Deferred Rectal: Deferred Extremities: Normal capillary refill, Normal range of motion, No pedal edema Musculoskeletal : Location: Right Extremity Location: Knee (Moderate size hematoma noted medial knee inferior to patella. Ecchymosis noted, superficial abrasions over mid lauren no noted b leeding or foreign body. Ballottement. Strength sensory and motion intact positive pedal pulses.) Apperance: Normal Neurologic: Alert, No Motor Deficits, Normal Affect, Normal Mood, No Sensory Deficits Cerebellar Function: Normal Reflexes: R Knee, R Ankle Skin: Dry, Normal Color, Warm Lymphatic: No Adenopathy Was a procedure done? Was a procedure done?: No Back Pain Differential Dx Differential Diagnosis: Fracture, Musculoskeletal Pain X-Ray, Labs, Meds, VS Vital Signs Date Time Temp Pulse Resp B/P (MAP) Pulse Ox O2 Delivery O2 Flow Rate FiO2 04/14/25 23:00 68 16 95 Room Air 04/14/25 23:00 98.6 68 16 151/83 (105) 99 98.6 04/14/25 21:11 97.9 82 16 169/95 96 97.9 Current Medications Medications (Trade) Dose Ordered Sig/Jasen Route Start Time Stop Time Status Last Admin Acetaminophen/ Hydrocodone Bitart ([place] 10/325MG Tab) 1 tab ONCE ONCE PO 04/14/25 22:45 04/14/25 22:46 DC 04/14/25 23:07 X-Ray, Labs, Meds, VS Comment RIGHT X-RAY SHOWS NO ACUTE FRACTURES OSSEOUS LESIONS OR DISLOCATIONS. ADVISED ON RICE. PATIENT GIVEN NORCO 10 MG P.O. REPORTS IMPROVEMENT IN PAIN AND FUNCTION REQUESTING DISCHARGE AT THIS TIME. SCRIPT TRIAL OF MEDROL DOSEPAK. PATIENT IS ON BLOOD THINNERS ADVISED TO AVOID NSAIDS. RIGHT KNEE WRAPPED IN RAYO WRAP FOR COMPRESSION. FOLLOW UP WITH YOUR PCP IN 2-3 DAYS NECESSARY ER RETURN PRECAUTIONS GIVEN PATIENT INDICATES UNDERSTANDING AGREES WITH DISCHARGE PLAN OF CARE. Time of 1ST Reevaluation: 21:40 Reevaluation 1ST: Unchanged Time of 2ND Reevaluation: 23:36 Reevaluation 2ND: Improved Patient Education/Counseling: Diagnosis, Treatment, Prognosis, Need For Follow Up Family Education/Counseling: Diagnosis, Treatment, Prognosis, Need For Follow Up SEPSIS Sepsis Screen Date sepsis recognized/suspect: Apr 14, 2025 Time Sepsis recognized/suspect: 2120 Recent Procedure: No On Antibiotic Therapy: No Respiratory Rate >20: No Heart Rate >90: No Temp<36 C (96.8 F) or >38.3 C: No SBP <90 or MAP <65 mmHG: No New Acute Mental Status Change: No Is the patient on CPAP, BIPAP,: No Physician Orders R Knee 2v Xray (04/14/25 21:15) Vital Signs Date Time Temp Pulse Resp B/P (MAP) Pulse Ox O2 Delivery O2 Flow Rate FiO2 04/14/25 23:00 68 16 95 Room Air 04/14/25 23:00 98.6 68 16 151/83 (105) 99 98.6 04/14/25 21:11 97.9 82 16 169/95 96 97.9 Medications Medications Dose Ordered Sig/Jasen Route Start Time Stop Time Status Last Admin Dose Admin Acetaminophen/ Hydrocodone Bitart 1 tab ONCE ONCE PO 04/14/25 22:45 04/14/25 22:46 DC 04/14/25 23:07 Departure 1 Departure Time of Disposition: 23:36 Impression: Primary Impression: Traumatic hematoma of right knee Qualified Codes: S80.01XA - Contusion of right knee, initial encounter Additional Impression: Fall Qualified Codes: W19.XXXA - Unspecified fall, initial encounter Disposition: HOME / SELF CARE / HOMELESS Condition: Stable e-Prescriptions Methylprednisolone (Medrol Dosepak) 4 Mg Jian 4 MG PO UD for 6 Days, #21 TAB UAD Prov: LALY CHI 04/14/25 Discharged With: Spouse Critical Care Note Critical Care Time?: No Stability Stability form required: No LALY CHI Apr 14, 2025 22:49
[2025-04-14] MEDS ORDERED: METH4PAK PO (22:55)
[2025-04-14 23:00] VITALS: BP 151/83; PULSE 68; RESP 16; TEMP 98.6; O2SAT 95
[2025-04-14] MEDS: HYDROcodone-ACET 10/325MG TAB PO ONE (23:07)
== END 2025-04-14 23:44 | disposition home or self-care (01) ==
LOC: ER 21:07
DX: S80.01XA Contusion of right knee, initial encounter (principal); I10 Essential (primary) hypertension; Z79.899 Other long term (current) drug therapy; Z79.02 Long term (current) use of antithrombotics/antiplatelets; W01.0XXA Fall on same level from slipping, tripping and stumbling without subsequent striking against object, initial encounter; Y93.89 Activity, other specified; Y92.89 Other specified places as the place of occurrence of the external cause; Y99.8 Other external cause status
CPT/HCPCS: 73560

== ENCOUNTER 2025-04-16 11:18 | Outpatient (CLI) | payer MEDICARE, BC ==
[2025-04-16 11:14] VITALS: BP 124/70; PULSE 74; RESP 16; O2SAT 96
[~2025-04-16 11:18] MED LIST changes: +METH4PAK PO
[2025-04-16 11:32] VITALS: BP 124/76; PULSE 75; RESP 16; O2SAT 96
== END 2025-04-16 17:00 | disposition home or self-care (01) ==
LOC: CHF HDHVI 11:18
PROVIDERS: ATTEND Internal Medicine Cardiovascular Disease
DX: S80.11XA Contusion of right lower leg, initial encounter (principal); M79.81 Nontraumatic hematoma of soft tissue; X58.XXXA Exposure to other specified factors, initial encounter; Y93.89 Activity, other specified; Y92.89 Other specified places as the place of occurrence of the external cause; Y99.8 Other external cause status
CPT/HCPCS: G0463

== ENCOUNTER → 2025-04-18 | Outpatient (CLI) | payer MEDICARE, BC ==
[2025-04-18 11:30] VITALS: BP 121/69; PULSE 73; RESP 16; O2SAT 95
[2025-04-18 12:00] VITALS: BP 122/74; PULSE 74; RESP 16; O2SAT 95
== END | disposition home or self-care (01) ==
LOC: CHF HDHVI 11:27
PROVIDERS: ATTEND Internal Medicine Cardiovascular Disease
DX: S80.11XA Contusion of right lower leg, initial encounter (principal); X58.XXXA Exposure to other specified factors, initial encounter; Y93.89 Activity, other specified; Y92.89 Other specified places as the place of occurrence of the external cause; Y99.8 Other external cause status
CPT/HCPCS: G0463

== ENCOUNTER 2025-04-23 14:36 | Inpatient (IN) | payer MEDICARE, BC ==
[~2025-04-23] VITALS: Ht 170.2 cm; Wt 81.4 kg
[~2025-04-23 14:36] MED LIST changes: -METH4PAK PO
--- NOTE | 2025-04-23 15:13 | ED.PDOC ---
HPI Comments This is a 70 year old male CARLOS presenting to the ED with chief complaint of syncope. Patient reports while at Dr. Fowler's office pending a cardiac stress test, he suffered a syncopal episode lasting 20 seconds ago. Patient relays that he has also had bruising and pain to his right leg after a fall a week ago. Patient denies any N/V, chest pain, SOB, headache, or dizziness. Time Seen by MD: 15:09 Primary Care Provider: BALDOMERO Reviewed Notes: Nurses Notes, Zanjero Notes, Medications, Allergies Allergies: Coded Allergies: Cetirizine (Verified Allergy, Unknown, 05/30/23) Home Meds Reported Medications Coenzyme Q10 (Ubidecarenone) (COQ-10) 400 Mg Cap, 900 MG OR, CAP 08/11/23 Curcuma Longa (Turmeric) Extra (TURMERIC) 500 Mg Cap, 3000 MG OR, CAP 08/11/23 S-Adenosylmethionine (EYAL E) 400 Mg Tab, 400 MG OR, TAB 08/11/23 Cholecalciferol (D3 5000) 5,000 Unit Cap, 5000 UNIT PO, CAP 08/11/23 Ginkgo Biloba Extract (Ginkgo Biloba) 120 Mg Cap, 120 MG PO, CAP 08/11/23 Alprazolam (Alprazolam) 0.25 Mg Tab, 1 TAB PO DAILY for anxiety, #30 TAB 08/11/23 Tramadol Hcl (Tramadol Hcl) 50 Mg Tab, 50 MG PO Q6HP PRN for FOR INSOMNIA, MG 08/11/23 Clopidogrel Bisulfate (Plavix) 75 Mg Tab, 1 TAB PO DAILY, #90 TAB 1 Refill 08/11/23 Olmesartan Medoxomil (Benicar) 20 Mg Tab, 1 TAB PO DAILY, #30 TAB 5 Refills 08/11/23 Ezetimibe (Ezetimibe) 10 Mg Tab, 10 MG PO DAILY 08/11/23 Olmesartan Medoxomil (Olmesartan Medoxomil) 20 Mg Tab, 1 TAB PO DAILY 08/10/23 Metoprolol Succinate (Metoprolol Succinate Er) 50 Mg Tab, 50 PO 08/10/23 Methimazole (Methimazole) 5 Mg Tab, 5 PO 08/10/23 Metformin Hydrochloride (Metformin Hcl) 500 Mg Tab, 500 PO 08/10/23 Pantoprazole Sodium Sesquihydr (Pantoprazole Sodium) 40 Mg Tab, 40 PO 08/10/23 Discontinued Scripts Methylprednisolone (Medrol Dosepak) 4 Mg Jian, 4 MG PO UD for 6 Days, #21 TAB UAD Prov:LALY CHI CLINICAL NUTRITION MANAGER 04/14/25 Information Source: Patient, Emergency Med Personnel Mode of Arrival: EMS Severity: Moderate Timing: Hours Duration: Since onset Prehospital treatment: None Onset: At Rest Cardiac Risk Factors: Hyperlipidemia, HTN, Diabetes PE Risk Factors: None Associated Signs and Symptoms: Syncope Past Medical History PAST MEDICAL HISTORY: DM, HTN, Thyroid Surgical History (Other): Rt leg surgery, eye surgery, ear surgery Family History Family History: Reviewed,noncontributory to illness Social History Smoker: Non-Smoker Alcohol: Denies ETOH Use Drugs: Denies Drug Use Lives In: Home Constitutional: denies: chills, diaphoresis, fatigue, fever, malaise, sweats, weakness, others EENTM: denies: blurred vision, double vision, ear bleeding, ear discharge, ear drainage, ear pain, ear ringing, eye pain, eye redness, hearing loss, mouth pain, mouth swelling, nasal discharge, nose bleeding, nose congestion, nose pain, photophobia, tearing, throat pain, throat swelling, voice changes, others Respiratory: denies: cough, hemoptysis, orthopnea, SOB at rest, shortness of breath, SOB with excertion, stridor, wheezing, others Cardiovascular: reports: syncope; denies: chest pain, dizzy spells, diaphoresis, Dyspnea on exertion, edema, irregular heart beat, left arm pain, lightheadedness, palpitations, PND, others Gastrointestinal: denies: abdomen distended, abdominal pain, blood streaked bowels, constipated, diarrhea, dysphagia, difficulty swallowing, hematemesis, melena, nausea, poor appetite, poor fluid intake, rectal bleeding, rectal pain, vomiting, others Genitourinary: denies: burning, dysuria, flank pain, frequency, hematuria, incontinence, penile discharge, penile sore, pain, testicle pain, testicle swelling, urgency, others Neurological: denies: dizziness, fainting, headache, left sided numbness, left sided weakness, numbness, paresthesia, pre-existing deficit, right sided numbness, right sided weakness, seizure, speech problems, tingling, tremors, weakness, others Musculoskeletal: denies: back pain, gout, joint pain, joint swelling, muscle pain, muscle stiffness, neck pain, others Integumetry: denies: bruises, change in color, change in hair/nails, dryness, laceration, lesions, lumps, rash, wounds, others Allergic/Immunocompromised: denies: Difficulty Healing, Frequent Infections, Hives, Itching, others Hematologic/Lymphatic: denies: anemia, blood clots, easy bleeding, easy bruising, swollen glands, others Endocrine: denies: excessive hunger, excessive sweating, excessive thirst, excessive urination, flushing, intolerance to cold, intolerance to heat, unexplained weight gain, unexplained weight loss, others Psychiatric: denies: anxiety, bipolar disorder, depression, hopeless, panic disorder, schizophrenia, sleepless, suicidal, others All Other Systems: Reviewed and Negative Physical Exam General Appearance: Moderate Distress, Normal HEENT: Normal ENT Inspection, Pharynx Normal, TMs Normal Neck: Full Range of Motion, Non-Tender, Normal, Normal Inspection Respiratory: Chest Non-Tender, Lungs Clear, No Accessory Muscle Use, No Respiratory Distress, Normal Breath Sounds Cardiovascular: No Edema, No JVD, No Murmur, No Gallop, Normal Peripheral Pulses, Regular Rate/Rhythm Breast Exam: Deferred Gastrointestinal: No Organomegaly, Non Tender, No Pulsatile Mass, Normal Bowel Sounds, Soft Genitalia: Deferred Pelvic: Deferred Rectal: Deferred Extremities: No calf tenderness, Normal capillary refill, Normal inspection, Normal range of motion, Non-tender, No pedal edema Musculoskeletal : Apperance: Normal Neurologic: Alert, commodity specialist II-XII nml as Tested, No Motor Deficits, Normal Affect, Normal Mood, No Sensory Deficits Cerebellar Function: NOT DONE Reflexes: NOT DONE Skin: Dry, Normal Color, Warm, Wounds (Right lower extremity) Peripheral Pulses: 3+ Radial (R), 3+ Radial (L) Lymphatic: No Adenopathy Was a procedure done? Was a procedure done?: No CP Differential Dx Differential Diagnosis: A-fib, A-Flutter, Angina, Anxiety / Panic Attack, Atrial Dysrhythmia, Electrolyte Disorder X-Ray, Labs, Meds, VS Vital Signs Date Time Temp Pulse Resp B/P (MAP) Pulse Ox O2 Delivery O2 Flow Rate FiO2 04/23/25 16:00 72 04/23/25 15:37 67 10 97 Room Air* 0 21 04/23/25 15:37 97.6 67 10 118/67 (84) 97 97.6 04/23/25 14:44 67 04/23/25 14:41 97.7 83 16 112/71 99 97.7 Lab Test 04/23/25 16:30 04/23/25 15:21 Range/Units Troponin I High Sensitivity Pending < 3 L </=54 ng/L White Blood Count 13.8 H 4.4-10.8 10^3/uL Red Blood Count 4.70 4.5-5.90 10^6/uL Hemoglobin 14.3 13.5-17.5 g/dL Hematocrit 41.7 41.0-53.0 % Mean Corpuscular Volume 88.7 80.0-100.0 fL Mean Corpuscular Hemoglobin 30.4 28.0-32.0 pg Mean Corpuscular Hemoglobin Concent 34.2 32.0-36.0 g/dL Red Cell Distribution Width 13.0 11.8-14.3 % Platelet Count 304 140-450 10^3/uL Mean Platelet Volume 6.5 L 6.9-10.8 fL Neutrophils (%) (Auto) 76.5 37.0-80.0 % Lymphocytes (%) (Auto) 12.4 10.0-50.0 % Monocytes (%) (Auto) 8.6 0.0-12.0 % Eosinophils (%) (Auto) 2.0 0.0-7.0 % Basophils (%) (Auto) 0.5 0.0-2.0 % Neutrophils # (Auto) 10.6 H 1.6-8.6 10 ^3/uL Lymphocytes # (Auto) 1.7 0.4-5.4 10 ^3/uL Monocytes # (Auto) 1.2 0-1.3 10 ^3/uL Eosinophils # (Auto) 0.3 0-0.8 10 ^3/uL Basophils # (Auto) 0.1 0-0.2 10 ^3/uL Nucleated Red Blood Cells 0.0 % Sodium Level 137 136-145 mmol/L Potassium Level 4.8 3.5-5.1 mmol/L Chloride Level 103 98-107 mmol/L Carbon Dioxide Level 28 20-31 mmol/L Anion Gap 6 5-15 Blood Urea Nitrogen 20 9-23 mg/dL Creatinine 1.30 0.700-1.30 mg/dL Glomerular Filtration Rate Calc 59 >90 mL/min BUN/Creatinine Ratio 15.4 10.0-20.0 Serum Glucose 136 H 74-106 mg/dL Calcium Level 9.4 8.7-10.4 mg/dL Patient alert pain Came in because of near-syncope. Vitals stable. Answering questions. Has a wound in the right lower extremity. From cardiac stent. WBC slightly elevated. Cardiac marker within normal limits. WBC could be from the infection of the right lower extremity. Explained to the patient. Continue monitoring. Time of 1ST Reevaluation: 16:09 Reevaluation 1ST: Unchanged Patient Education/Counseling: Diagnosis, Treatment Family Education/Counseling: No Family Present SEPSIS Sepsis Screen Physician Orders Head Without Contrast (04/23/25 15:11) Rt Lower Dvt (04/23/25 15:11) Chest Portable (04/23/25 15:11) Urinalysis (04/23/25 15:11) Troponin-I Hs (04/23/25 16:11) Troponin-I Hs (04/23/25 18:11) Vital Signs Date Time Temp Pulse Resp B/P (MAP) Pulse Ox O2 Delivery O2 Flow Rate FiO2 04/23/25 16:00 72 04/23/25 15:37 67 10 97 Room Air* 0 21 04/23/25 15:37 97.6 67 10 118/67 (84) 97 97.6 04/23/25 14:44 67 04/23/25 14:41 97.7 83 16 112/71 99 97.7 Laboratory Tests Test 04/23/25 15:21 White Blood Count 13.8 10^3/uL (4.4-10.8) H Departure 1 Departure Time of Disposition: 17:37 Impression: Primary Impression: Syncope Qualified Codes: R55 - Syncope and collapse Disposition: ADMITTED INPATIENT Admit to: Med Surg Condition: Guarded Critical Care Note Critical Care Time?: No Stability Stability form required: No Heart Score Heart Score: Heart Score Response (Comments) Value History Highly Suspicious 2 EKG Normal 0 Age >65 2 Risk Factors >3 or Hx ASHD 2 Troponin Normal limit 0 Total 6 I personally scribed for CONY KPALAN MD ([email or web address]) on 04/23/25 at 15:13. Electronically submitted by Bryson Servin ([email or web address]). CONY KAPLAN MD Apr 23, 2025 15:13
[2025-04-23 15:33] LABS: Hematocrit 41.7 % (41.0-53.0); Hemoglobin 14.3 g/dL (13.5-17.5); Mean Corpuscular Hemoglobin 30.4 pg (28.0-32.0); Mean Corpuscular Volume 88.7 fL (80.0-100.0); Nucleated Red Blood Cells % 0.0 %
[2025-04-23 15:37] VITALS: PULSE 67; RESP 10; O2SAT 97
[2025-04-23 15:39] LABS: Chloride 103 mmol/L (98-107); Potassium 4.8 mmol/L (3.5-5.1); Sodium 137 mmol/L (136-145)
[2025-04-23 15:40] LABS: Anion Gap 6 (5-15); Calcium 9.4 mg/dL (8.7-10.4); Carbon Dioxide 28 mmol/L (20-31)
[2025-04-23 15:45] LABS: BUN/Creatinine Ratio 15.4 (10.0-20.0); Blood Urea Nitrogen 20 mg/dL (9-23)
[2025-04-23 15:46] LABS: Glucose 136 mg/dL (74-106)
--- NOTE | 2025-04-23 16:33 | DVH ---
CLINICAL HISTORY: dvt right lower extremity pain status post injury TECHNIQUE: Color and duplex doppler imaging of the right lower extremity veins was performed. Vessel compression if possible was also performed. WID: COMPARISON: None FINDINGS: Right common femoral vein: Normal compressibility and flow. Right femoral vein: Normal compressibility and flow. Right popliteal vein: Normal compressibility and flow. Proximal calf veins are normally compressible. IMPRESSION: 1. NO SONOGRAPHIC EVIDENCE FOR DEEP VENOUS THROMBOSIS IN THE RIGHT LOWER EXTREMITY VEINS.
--- NOTE | 2025-04-23 16:41 | ECG ---
[facility] Test Date: 2025-04-23 Test Time: 14:44:43 Pat Name: CT BOWEN Department: Room: Gender: M Notched Blade Loader: HAMIDA : 1955 Requested By: EMERGENCY EMERGENCY Order Number: [id number] Reading MD: Measurements Intervals [place] Rate: 67 P: 62 VA: 184 QRS: 50 QRSD: 87 T: 47 QT: 394 QTc: 416 Interpretive Statements Sinus rhythm Please click the below link to view image of tracing.
--- NOTE | 2025-04-23 16:46 | DVH ---
COMPUTERIZED TOMOGRAPHY OF THE HEAD WITHOUT CONTRAST REASON FOR STUDY: sycope COMPARISON: CT HEAD WITHOUT CONTRAST on DOS: 09/02/24, CT HEAD WITHOUT CONTRAST on DOS: 05/02/24, MRI B RAIN HEAD WO CONTRAST on DOS: 08/11/23, CT STROKE CTH on DOS: 08/10/23, CT ANGIO HEAD/NECK on DOS: TECHNIQUE: Helical tomographic scans were obtained through the brain. 2-D coronal and sagittal refor matted images are provided. Radiation optimization: All CT scans at this facility use at least one of these dose optimization techniques: Automated exposure control mA and/or kV adjustment per patient s ize (includes targeted exams where dose is matched to clinical indication) or iterative reconstructio n. RADIATION DOSE: CTDI: 55.5 mGy DLP: 982.72 mGy-cm FINDINGS: No suspicious intracranial hyperdensity to suggest acute blood. 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 There is no mass effect nor midline shift. There is moderate generalized v olume loss with compensatory enlargement of the CSF spaces. There is no hydrocephalus. The suprasella r cistern is intact. There are scattered periventricular and deep white matter hypodensities that are most consistent with chronic microangiopathic changes. The calvarium is intact. The patient is statu s post bilateral mastoidectomy. There is soft tissue density in the in the left mastoidectomy space, unchanged. 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 IMPRESSION: No acute intracranial abnormality. Moderate generalized volume loss with chronic small vessel ischemic change.
--- NOTE | 2025-04-23 16:47 | DVH ---
EXAM: XY CHEST PORTABLE CLINICAL HISTORY: sob TECHNIQUE: Single AP view of the chest WID: COMPARISON: XY CHEST XRAY 1 VIEW on DOS: 08/10/23 FINDINGS: Lines and tubes: None Chest: The heart size and pulmonary vasculature is within normal limits. Calcified plaque projects over the aortic arch. No pleural effusion, pneumothorax, or consolidation. The osseous structures are grossly intact. Multilevel thoracic spondylosis. IMPRESSION: 1. No acute cardiopulmonary abnormality.
[2025-04-23] MEDS ORDERED: MORPHINE SULFATE INJ 2 MG/ml SYRG IV PRN (20:00)
[2025-04-23] MEDS ORDERED: NITROGLYCERIN 0.4 MG SL TAB SL PRN (20:00)
[2025-04-23 20:14] LABS: Urine Protein, UAD Negative (Negative)
[2025-04-23] MEDS ORDERED: ONDANSETRON HCL 4 MG/2 ML VIAL IV PRN (21:45)
[2025-04-23] MEDS ORDERED: DEXTROSE (50%) 50ML SYRG IV PRN (21:45)
--- NOTE | 2025-04-23 21:47 | DVHHP2 ---
History of Present Illness Reason for Visit: Syncope History of Present Illness 70-year-old male presents for evaluation of syncope. 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 Patient was transferred to the emergency department for further evaluation. Denies any dizziness, headache, blurred vision or chest pain at the moment. Past Medical History Diabetes mellitus, hypertension, thyroid Past Surgical History Ear surgery, leg surgery Family History Noncontributory Smoke: No ALCOHOL: none Drugs: None Lives: with Family Review of Systems Review of Systems Review of systems are currently negative otherwise addressed in HPI. Allergies: Coded Allergies: Cetirizine (Verified Allergy, Unknown, 05/30/23) Medications Current Medications Medications Dose Ordered Sig/Jasen Route Start Time Stop Time Status Last Admin Dose Admin Nitroglycerin 0.4 mg Q5MINP PRN SL 04/23/25 20:00 Morphine Sulfate 2 mg Q30M PRN IV 04/23/25 20:00 Exam Vital Signs Vital Signs Date Time Temp Pulse Resp B/P (MAP) Pulse Ox O2 Delivery O2 Flow Rate FiO2 04/23/25 20:00 83 04/23/25 20:00 97.7 12 125/72 (89) 96 97.7 04/23/25 19:20 Room Air* 0 21 Exam Gen: 70-year-old male in mild distress Skin: Warm, dry, normal color and texture, no rash. HEENT: Normocephalic atraumatic, mucous membranes moist and pink. Neck: Cervical and supraclavicular nodes normal without enlargement, trachea is midline, thyroid gland is normal without masses. Pulmonary: Clear to auscultation and percussion bilaterally. Cardiac: Regular rate and rhythm. No murmur Abdomen: Soft, nontender, nondistended, bowel sounds present all 4 quadrants, no guarding, no rigidity, no organomegaly. Extremities: No cyanosis, clubbing, no edema Neuro: Cranial nerves II through XII grossly intact, normal affect and speech, no focal motor deficits. Labs/Xrays ORDERING PHYSICIAN: BALDOMERO GONZALES MD PROCEDURE(s): ECIDC - ECHO 2D MODE CARDIAC DOP REASON: I63.9,I10 ORDER NUMBER(s): [id number], ACCESSION NUMBER(s): [id number] APPROVED REPORT EXAM: Two-dimensional and M-mode echocardiogram with Doppler and color Doppler. DIMENSIONS LVDd 3.5 (3.8-5.7cm) LA (2D) 3.9 (1.9-4.0cm) Aortic Root 3.5 (2.0- 3.7cm) LVDs 2.4 (2.5-4.0cm) LA (MM) (1.9-4.0cm) Aortic Cusp Exc 2.1 (1.5- 2.0cm) EF (%) 59.0 (55-70%) Rt. Atrium 4.3 (1.9-4.0cm) Asc. Aorta 3.7 cm IVSd 0.9 (0.7-1.1cm) RV (D) 3.0 (1.8-2.4cm) PWd 1.0 (0.7-1.1cm) Mitral Valve Mitral Mitral Stenosis E wave 0.64m/s MV Mean GR. mmHg A wave 1.21m/s MV Peak GR. 67mmHg E/A ratio 0.5 2D MVA cm2 DECEL Time 216ms PRESS 1/2 Time ms Aortic Valve Aortic Valve Aortic Stenosis V1 1.09m/s AO Mean GR. 3mmHg V2 1.24m/s AO Peak GR. 6mmHg Pulmonic Valve V2 0.73m/s Tricuspid Valve TR Velocity 1.86m/s RVSP 17mmHg LEFT VENTRICLE The Ejection Fraction is >55%. ATRIA The left atrial size is normal. The right atrium is mildly dilated. MITRAL VALVE The mitral valve is normal in structure and function. Mitral regurgitation is mild. PULMONIC VALVE The pulmonic valve is not well visualized. TRICUSPID VALVE The tricuspid valve is grossly normal. There is trace tricuspid regurgitation. AORTIC VALVE The aortic valve opens well. No aortic regurgitation is present. GREAT VESSELS The aortic root is normal size. PERICARDIAL EFFUSION There is no pericardial effusion. Conclusion RAYO MILD MR EF >55% SIGNED BY: BALDOMERO GONZALES MD SIGNED DATE/TIME: 02/20/25 2040 ORDERING PHYSICIAN: CONY KAPLAN MD PROCEDURE(s): RLDVT - RT Lower DVT REASON: dvt ORDER NUMBER(s): [id number], ACCESSION NUMBER(s): [id number] CLINICAL HISTORY: dvt right lower extremity pain status post injury TECHNIQUE: Color and duplex doppler imaging of the right lower extremity veins was performed. Vessel compression if possible was also performed. WID: COMPARISON: None FINDINGS: Right common femoral vein: Normal compressibility and flow. Right femoral vein: Normal compressibility and flow. Right popliteal vein: Normal compressibility and flow. Proximal calf veins are normally compressible. IMPRESSION: 1. NO SONOGRAPHIC EVIDENCE FOR DEEP VENOUS THROMBOSIS IN THE RIGHT LOWER EXTREMITY VEINS. RING PHYSICIAN: CONY KAPLAN MD PROCEDURE(s): HWOCT - HEAD WITHOUT CONTRAST REASON: sycope ORDER NUMBER(s): [id number], ACCESSION NUMBER(s): [id number] COMPUTERIZED TOMOGRAPHY OF THE HEAD WITHOUT CONTRAST REASON FOR STUDY: sycope COMPARISON: CT HEAD WITHOUT CONTRAST on DOS: 09/02/24, CT HEAD WITHOUT CONTRAST on DOS: 05/02/24, MRI BRAIN HEAD WO CONTRAST on DOS: 08/11/23, CT STROKE CTH on DOS: 08/10/23, CT ANGIO HEAD/NECK on DOS: 08/10/23 TECHNIQUE: Helical tomographic scans were obtained through the brain. 2-D coronal and sagittal reformatted images are provided. Radiation optimization: All CT scans at this facility use at least one of these dose optimization techniques: Automated exposure control mA and/or kV adjustment per patient size (includes targeted exams where dose is matched to clinical indication) or iterative reconstruction. RADIATION DOSE: CTDI: 55.5 mGy DLP: 982.72 mGy-cm FINDINGS: No suspicious intracranial hyperdensity to suggest acute blood. 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 There is no mass effect nor midline shift. There is moderate generalized volume loss with compensatory enlargement of the CSF spaces. There is no hydrocephalus. The suprasellar cistern is intact. There are scattered periventricular and deep white matter hypodensities that are most consistent with chronic microangiopathic changes. The calvarium is intact. The patient is status post bilateral mastoidectomy. There is soft tissue density in the in the left mastoidectomy space, unchanged. 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 IMPRESSION: No acute intracranial abnormality. Moderate generalized volume loss with chronic small vessel ischemic change. RING PHYSICIAN: CONY KAPLAN MD PROCEDURE(s): CXRP - CHEST PORTABLE REASON: sob ORDER NUMBER(s): [id number], ACCESSION NUMBER(s): [id number] EXAM: XY CHEST PORTABLE CLINICAL HISTORY: sob TECHNIQUE: Single AP view of the chest WID: COMPARISON: XY CHEST XRAY 1 VIEW on DOS: 08/10/23 FINDINGS: Lines and tubes: None Chest: The heart size and pulmonary vasculature is within normal limits. Calcified plaque projects over the aortic arch. No pleural effusion, pneumothorax, or consolidation. The osseous structures are grossly intact. Multilevel thoracic spondylosis. IMPRESSION: 1. No acute cardiopulmonary abnormality. Labs Test 04/23/25 18:24 04/23/25 17:56 04/23/25 15:21 Range/Units Troponin I High Sensitivity < 3 L </=54 ng/L Urine Color Dark-yellow Yellow Urine Clarity Clear Clear Urine pH 5.5 5.0-9.0 Urine Specific [place] 1.028 1.001-1.035 Urine Protein Negative Negative Urine Ketones Negative Negative Urine Blood Negative Negative /uL Urine Nitrite Negative Negative Urine Bilirubin Negative Negative Urine Urobilinogen Normal Negative mg/dL Urine Leukocyte Esterase Negative Negative /uL Urine RBC 3 0 - 3 /hpf Urine Microscopic WBC 1 0-3 /HPF Urine Squamous Epithelial Cells Few <5 /hpf Urine Bacteria None seen None Seen /hpf Urine Mucus Few None Seen Urine Glucose Normal Normal mg/dL White Blood Count 13.8 H 4.4-10.8 10^3/uL Red Blood Count 4.70 4.5-5.90 10^6/uL Hemoglobin 14.3 13.5-17.5 g/dL Hematocrit 41.7 41.0-53.0 % Mean Corpuscular Volume 88.7 80.0-100.0 fL Mean Corpuscular Hemoglobin 30.4 28.0-32.0 pg Mean Corpuscular Hemoglobin Concent 34.2 32.0-36.0 g/dL Red Cell Distribution Width 13.0 11.8-14.3 % Platelet Count 304 140-450 10^3/uL Mean Platelet Volume 6.5 L 6.9-10.8 fL Neutrophils (%) (Auto) 76.5 37.0-80.0 % Lymphocytes (%) (Auto) 12.4 10.0-50.0 % Monocytes (%) (Auto) 8.6 0.0-12.0 % Eosinophils (%) (Auto) 2.0 0.0-7.0 % Basophils (%) (Auto) 0.5 0.0-2.0 % Neutrophils # (Auto) 10.6 H 1.6-8.6 10 ^3/uL Lymphocytes # (Auto) 1.7 0.4-5.4 10 ^3/uL Monocytes # (Auto) 1.2 0-1.3 10 ^3/uL Eosinophils # (Auto) 0.3 0-0.8 10 ^3/uL Basophils # (Auto) 0.1 0-0.2 10 ^3/uL Nucleated Red Blood Cells 0.0 % Sodium Level 137 136-145 mmol/L Potassium Level 4.8 3.5-5.1 mmol/L Chloride Level 103 98-107 mmol/L Carbon Dioxide Level 28 20-31 mmol/L Anion Gap 6 5-15 Blood Urea Nitrogen 20 9-23 mg/dL Creatinine 1.30 0.700-1.30 mg/dL Glomerular Filtration Rate Calc 59 >90 mL/min BUN/Creatinine Ratio 15.4 10.0-20.0 Serum Glucose 136 H 74-106 mg/dL Calcium Level 9.4 8.7-10.4 mg/dL SEPSIS Sepsis Screen Date sepsis recognized/suspect: Apr 23, 2025 Time Sepsis recognized/suspect: 1919 Recent Procedure: No On Antibiotic Therapy: No Respiratory Rate >20: No Heart Rate >90: No Temp<36 C (96.8 F) or >38.3 C: No SBP <90 or MAP <65 mmHG: No New Acute Mental Status Change: No Is the patient on CPAP, BIPAP,: No Physician Orders Head Without Contrast (04/23/25 15:11) Rt Lower Dvt (04/23/25 15:11) Chest Portable (04/23/25 15:11) Admit (04/23/25 19:47) Nitroglycerin Sublingual (Ntrostat Subli (04/23/25 20:00) Morphine Sulfate Injection (04/23/25 20:00) Stat Ekg For Chest Pain (04/23/25 19:47) Notify Of Changes From Base (04/23/25 19:47) Medical Biller Coder For 24 Hours (04/23/25 19:47) Emergency Dysrhythmia Protocol (04/23/25 19:47) Rhythm Strips Once Every Shift (04/23/25 19:47) Oxygen By Nasal Cannula (04/23/25 19:47) Clopidogrel Bisulfate (Plavix) (04/24/25 10:00) Metoprolol Xl Succinate (Toprol Xl) (04/24/25 10:00) (Nf) Olmesartan (04/24/25 10:00) Basic Metabolic Panel (04/24/25 04:00) * Cardiology Consult (04/23/25 21:31) Glucose Blood (Accu-Chek Comfort Curve T (04/23/25 22:00) Insulin R (Human) (Insulin R) (04/23/25 22:00) Dextrose 50% Syringe (04/23/25 21:45) Ondansetron Hcl (Zofran) (04/23/25 21:45) Cardiac Diet-2gna,Lofat,Lochol (04/24/25 Breakfast) Condition: Fair (04/23/25 21:31) Bedrest With Bathroom Privileg (04/23/25 21:31) Carotid Duplx W Color Dop (04/24/25 07:00) Vital Signs Date Time Temp Pulse Resp B/P (MAP) Pulse Ox O2 Delivery O2 Flow Rate FiO2 04/23/25 20:00 83 04/23/25 20:00 97.7 83 12 125/72 (89) 96 97.7 04/23/25 19:20 Room Air* 0 21 04/23/25 18:00 76 13 131/71 (91) 99 04/23/25 17:00 65 11 108/72 (84) 94 04/23/25 16:00 72 04/23/25 16:00 75 13 113/67 (82) 96 04/23/25 15:37 67 10 97 Room Air* 0 21 04/23/25 15:37 97.6 67 10 118/67 (84) 97 97.6 04/23/25 14:44 67 04/23/25 14:41 97.7 83 16 112/71 99 97.7 Laboratory Tests Test 04/23/25 15:21 White Blood Count 13.8 10^3/uL (4.4-10.8) H Assessment/Plan Assessment/Plan Assessment Syncope Hypertension Diabetes mellitus Plan Admit the patient to telemetry to the hospitalist Cardiology consultation Resume home medications Echocardiogram pending Continue treatment per orders. Plan discussed with: Patient My Orders Orders - LO BOX M AGACNP Procedure Category Date Status Time Admit ADMIT 04/23/25 Transmitted 19:47 Nitroglycerin PHA 04/23/25 In Process Sublingual (Ntrostat 20:00 Morphine Sulfate PHA 04/23/25 In Process Injection 20:00 Stat Ekg For Chest BANNER 04/23/25 In Process Pain 19:47 Notify Md Of Changes BANNER 04/23/25 In Process From Base 19:47 Medical Biller Coder For BANNER 04/23/25 In Process 24 Hours 19:47 Emergency Dysrhythmia BANNER 04/23/25 In Process Protocol 19:47 Rhythm Strips Once BANNER 04/23/25 In Process Every Shift 19:47 Oxygen By Nasal RT 04/23/25 Transmitted Cannula 19:47 Clopidogrel Bisulfate PHA 04/24/25 Logged (Plavix) 10:00 Metoprolol Xl PHA 04/24/25 Logged Succinate (Toprol Xl) 10:00 (Nf) Olmesartan PHA 04/24/25 Logged 10:00 Basic Metabolic Panel LAB 04/24/25 Verified 04:00 * Cardiology Consult CONS 04/23/25 Transmitted 21:31 Glucose Blood PHA 04/23/25 Logged (Accu-Chek Comfort 22:00 Insulin R (Human) PHA 04/23/25 Logged (Insulin R) 22:00 Dextrose 50% Syringe PHA 04/23/25 Logged 21:45 Ondansetron Hcl PHA 04/23/25 Logged (Zofran) 21:45 Cardiac DIET 04/24/25 Transmitted Diet-2gna,Lofat,Lochol Breakfast Condition: Fair LOLLY 04/23/25 In Process 21:31 Bedrest With Bathroom LOLLY 04/23/25 In Process Privileg 21:31 Carotid Duplx W Color US 04/24/25 Logged DOP 07:00 Date of Service: Apr 23, 2025 Billing Provider: LO BOX Common Visit Codes: [id number] INP/OBS CARE (HIGH) LO BOX Apr 23, 2025 21:47
[2025-04-23] MEDS: ACCU-CHEK COMFORT CURVE STRIP VI SCH (22:00)
[2025-04-23] MEDS: InsuLIN REG 1unit/0.01ml Soln (100units/ml) SC SCH (22:00)
[2025-04-23 22:55] VITALS: BP 142/81; PULSE 89; PULSE 91; RESP 16; TEMP 97.9
[2025-04-24] VITALS (8 sets, daily range): BP systolic 125–154; BP diastolic 69–85; PULSE 70–110; RESP 16–20; TEMP 97.8–98.8; O2SAT 95–97
[2025-04-24 07:12] LABS: Anion Gap 10 (5-15); Carbon Dioxide 25 mmol/L (20-31); Chloride 103 mmol/L (98-107); Potassium 4.6 mmol/L (3.5-5.1); Sodium 138 mmol/L (136-145)
[2025-04-24 07:13] LABS: Calcium 9.1 mg/dL (8.7-10.4)
[2025-04-24 07:18] LABS: BUN/Creatinine Ratio 13.4 (10.0-20.0); Blood Urea Nitrogen 16 mg/dL (9-23); Glucose 104 mg/dL (74-106)
--- NOTE | 2025-04-24 08:08 | DVH ---
Carotid Duplex Date: 04/24/2025 07:25 AM Clinical History: syncope Comparison: US CAROTID DUPLX W COLOR DOP on DOS: 02/12/25, US CAROTID DUPLX W COLOR DOP on DOS: 12/11/24 , US CAROTID DUPLX W COLOR DOP on DOS: 08/10/23, CT ANGIO HEAD/NECK on DOS: 08/10/23, US CAROTID DUPL X W COLOR DOP on DOS: 06/21/23 Technique: Duplex Doppler evaluation of the extracranial carotid and vertebral arteries including col or Doppler and spectral/pulsed waveform analysis was performed. Findings: Velocities and ratios within normal limits. IMPRESSION: No hemodynamically significant stenosis noted in the right carotid system. No hemodynamically significant stenosis noted in the left carotid system. Reference: Radiology 2003; 229:340-346
[2025-04-24] MEDS: LOSARTAN POTASSIUM 50 MG TAB PO SCH (09:50)
[2025-04-24] MEDS: CLOPIDOGREL BISULFATE 75 MG TAB PO SCH (09:50)
[2025-04-24] MEDS: METOPROLOL SUCCINATE XL 50 MG TAB PO SCH (09:50)
[2025-04-24] MEDS: HYDROcodone-ACET 5/325MG TAB PO PRN (09:53)
[2025-04-24] MEDS ORDERED: OLMESARTAN 20 MG PO SCH (10:00)
--- NOTE | 2025-04-24 10:35 | DVHPN2 ---
Progress Note - Dictate Date Seen: Apr 23, 2025 Medical Necessity Reason Pt with a Central, PICC or Fol: No Subjective PT WAS SEEN IN THE CLINIC WHEN HE WAS SCHEDULED TO [facility] FOLLOWING REST IMAGING PT BECOME DIAPHORETIC HE BRIEFLY BECOME UNRESPONSIVE 20 SECS SIGN SX COMPLEX DIZZINESS LEFT FACIAL NUMBNESS UNSTEADY GAIT LEFT ORBITAL PAIN/HYPERSENSITIVITY DYSPHAGIA 2 EPISODES ABOUT A MONTH APART PMH; DIABETES HTN OBESITY HYPOTHYROID SLEEP APNEA CT HEAD NEGATIVE CAROTID NEGATIVE CTA HEAD NEGATIVE LHC IN THE PAST WAS NEGATIVE vital signs Vital Sign Date Time Temp Pulse Resp B/P (MAP) Pulse Ox O2 Delivery O2 Flow Rate FiO2 04/24/25 09:50 128/83 04/24/25 09:50 96 04/24/25 09:00 98.1 16 95 98.1 04/23/25 19:20 Room Air* 0 21 Total Intake and Output 04/23/25 04/23/25 04/24/25 15:00 23:00 07:00 Intake Total 310 ml Balance 310 ml medications Current Medications Medications Dose Ordered Sig/Jasen Route Start Time Stop Time Status Last Admin Dose Admin Nitroglycerin 0.4 mg Q5MINP PRN SL 04/23/25 20:00 Morphine Sulfate 2 mg Q30M PRN IV 04/23/25 20:00 Clopidogrel Bisulfate 75 mg DAILY PO 04/24/25 10:00 04/24/25 09:50 75 MG Metoprolol Succinate 50 mg DAILY PO 04/24/25 10:00 04/24/25 09:50 50 MG Diagnostic Test (Pha) 1 strip ACHS 04/23/25 22:00 04/24/25 05:48 1 STRIP Insulin Human Regular ACHS SC 04/23/25 22:00 Dextrose 50 ml UD PRN IV 04/23/25 21:45 Ondansetron HCl 4 mg Q4HP PRN IV 04/23/25 21:45 Losartan Potassium 100 mg DAILY PO 04/24/25 10:00 04/24/25 09:50 100 MG Acetaminophen/ Hydrocodone Bitart 1 tab Q6HPRN PRN PO 04/24/25 03:15 04/24/25 09:53 1 TAB laboratory and microbiology Laboratory Tests 04/24/25 05:15 04/23/25 15:21 Test 04/24/25 05:15 Range/Units Serum Glucose 104 74-106 mg/dL Problem List PT WAS SEEN IN THE CLINIC WHEN HE WAS SCHEDULED TO [facility] FOLLOWING REST IMAGING PT BECOME DIAPHORETIC HE BRIEFLY BECOME UNRESPONSIVE 20 SECS SIGN SX COMPLEX DIZZINESS LEFT FACIAL NUMBNESS UNSTEADY GAIT LEFT ORBITAL PAIN/HYPERSENSITIVITY DYSPHAGIA 2 EPISODES ABOUT A MONTH APART PMH; DIABETES HTN OBESITY HYPOTHYROID SLEEP APNEA CT HEAD NEGATIVE CAROTID NEGATIVE CTA HEAD NEGATIVE LHC IN THE PAST WAS NEGATIVE MILD LEUKOCYTOSIS SECONDARY TO DEMARGINATION UA NEGATIVE CXR NEGATIVE Assessment/Plan IV FLUID BRIEF ABX MAY DC HOME IN AM Plan discussed with: Patient BALDOMERO GONZALES MD Apr 24, 2025 10:35
--- NOTE | 2025-04-24 10:36 | DVHPN2 ---
Progress Note - Dictate Date Seen: Apr 24, 2025 Medical Necessity Reason Pt with a Central, PICC or Fol: No Subjective PT WAS SEEN IN THE CLINIC WHEN HE WAS SCHEDULED TO [facility]IOL[facility] FOLLOWING REST IMAGING PT BECOME DIAPHORETIC HE BRIEFLY BECOME UNRESPONSIVE 20 SECS SIGN SX COMPLEX DIZZINESS LEFT FACIAL NUMBNESS UNSTEADY GAIT LEFT ORBITAL PAIN/HYPERSENSITIVITY DYSPHAGIA 2 EPISODES ABOUT A MONTH APART PMH; DIABETES HTN OBESITY HYPOTHYROID SLEEP APNEA CT HEAD NEGATIVE CAROTID NEGATIVE CTA HEAD NEGATIVE LHC IN THE PAST WAS NEGATIVE vital signs Vital Sign Date Time Temp Pulse Resp B/P (MAP) Pulse Ox O2 Delivery O2 Flow Rate FiO2 04/24/25 09:50 128/83 04/24/25 09:50 96 04/24/25 09:00 98.1 16 95 98.1 04/23/25 19:20 Room Air* 0 21 Total Intake and Output 04/23/25 04/23/25 04/24/25 15:00 23:00 07:00 Intake Total 310 ml Balance 310 ml medications Current Medications Medications Dose Ordered Sig/Jasen Route Start Time Stop Time Status Last Admin Dose Admin Nitroglycerin 0.4 mg Q5MINP PRN SL 04/23/25 20:00 Morphine Sulfate 2 mg Q30M PRN IV 04/23/25 20:00 Clopidogrel Bisulfate 75 mg DAILY PO 04/24/25 10:00 04/24/25 09:50 75 MG Metoprolol Succinate 50 mg DAILY PO 04/24/25 10:00 04/24/25 09:50 50 MG Diagnostic Test (Pha) 1 strip ACHS 04/23/25 22:00 04/24/25 05:48 1 STRIP Insulin Human Regular ACHS SC 04/23/25 22:00 Dextrose 50 ml UD PRN IV 04/23/25 21:45 Ondansetron HCl 4 mg Q4HP PRN IV 04/23/25 21:45 Losartan Potassium 100 mg DAILY PO 04/24/25 10:00 04/24/25 09:50 100 MG Acetaminophen/ Hydrocodone Bitart 1 tab Q6HPRN PRN PO 04/24/25 03:15 04/24/25 09:53 1 TAB laboratory and microbiology Laboratory Tests 04/24/25 05:15 04/23/25 15:21 Test 04/24/25 05:15 Range/Units Serum Glucose 104 74-106 mg/dL Problem List PT WAS SEEN IN THE CLINIC WHEN HE WAS SCHEDULED TO [facility]IOL[facility] FOLLOWING REST IMAGING PT BECOME DIAPHORETIC HE BRIEFLY BECOME UNRESPONSIVE 20 SECS SIGN SX COMPLEX DIZZINESS LEFT FACIAL NUMBNESS UNSTEADY GAIT LEFT ORBITAL PAIN/HYPERSENSITIVITY DYSPHAGIA 2 EPISODES ABOUT A MONTH APART PMH; DIABETES HTN OBESITY HYPOTHYROID SLEEP APNEA CT HEAD NEGATIVE CAROTID NEGATIVE CTA HEAD NEGATIVE LHC IN THE PAST WAS NEGATIVE MILD LEUKOCYTOSIS SECONDARY TO DEMARGINATION UA NEGATIVE CXR NEGATIVE Assessment/Plan IV FLUID BRIEF ABX MAY DC HOME SX CONSISTENT WITH VASOVAGAL EPISODE Plan discussed with: Patient BALDOMERO GONZALES MD Apr 24, 2025 10:36
[2025-04-25 01:00] VITALS: BP 138/86; PULSE 85; RESP 19; TEMP 97.8; O2SAT 95
[2025-04-25 05:00] VITALS: BP 143/90; PULSE 82; RESP 16; TEMP 98.4; O2SAT 96
[2025-04-25 08:00] VITALS: PULSE 92; PULSE 97; RESP 16; O2SAT 93
[2025-04-25 08:54] VITALS: BP 131/85; PULSE 92; RESP 16; TEMP 97.9; O2SAT 93
[2025-04-25 12:51] VITALS: BP 134/77; PULSE 86; RESP 14; TEMP 97.8; O2SAT 95
--- NOTE | 2025-04-25 15:14 | DVHDS2 ---
Discharge Summary Date of Admission Apr 23, 2025 at 19:47 Date of Discharge: Apr 25, 2025 Admitting Diagnosis [facility] Labs/Diagnostic Data: Laboratory Results Test 04/25/25 11:41 04/24/25 05:15 04/23/25 18:24 04/23/25 17:56 POC Glucose 103 mg/dl (70-106) Sodium Level 138 mmol/L (136-145) Potassium Level 4.6 mmol/L (3.5-5.1) Chloride Level 103 mmol/L (98-107) Carbon Dioxide Level 25 mmol/L (20-31) Anion Gap 10 (5-15) Blood Urea Nitrogen 16 mg/dL (9-23) Creatinine 1.19 mg/dL (0.700-1.30) Glomerular Filtration Rate Calc 65 mL/min (>90) BUN/Creatinine Ratio 13.4 (10.0-20.0) Serum Glucose 104 mg/dL (74-106) Calcium Level 9.1 mg/dL (8.7-10.4) Troponin I High Sensitivity < 3 ng/L (</=54) Urine Color Dark-yellow (Yellow) Urine Clarity Clear (Clear) Urine pH 5.5 (5.0-9.0) Urine Specific [place] 1.028 (1.001-1.035) Urine Protein Negative (Negative) Urine Ketones Negative (Negative) Urine Blood Negative /uL (Negative) Urine Nitrite Negative (Negative) Urine Bilirubin Negative (Negative) Urine Urobilinogen Normal mg/dL (Negative) Urine Leukocyte Esterase Negative /uL (Negative) Urine RBC 3 /hpf (0 - 3) Urine Microscopic WBC 1 /HPF (0-3) Urine Squamous Epithelial Cells Few /hpf (<5) Urine Bacteria None seen /hpf (None Seen) Urine Mucus Few (None Seen) Urine Glucose Normal mg/dL (Normal) Test 04/23/25 15:21 White Blood Count 13.8 10^3/uL (4.4-10.8) Red Blood Count 4.70 10^6/uL (4.5-5.90) Hemoglobin 14.3 g/dL (13.5-17.5) Hematocrit 41.7 % (41.0-53.0) Mean Corpuscular Volume 88.7 fL (80.0-100.0) Mean Corpuscular Hemoglobin 30.4 pg (28.0-32.0) Mean Corpuscular Hemoglobin Concent 34.2 g/dL (32.0-36.0) Red Cell Distribution Width 13.0 % (11.8-14.3) Platelet Count 304 10^3/uL (140-450) Mean Platelet Volume 6.5 fL (6.9-10.8) Neutrophils (%) (Auto) 76.5 % (37.0-80.0) Lymphocytes (%) (Auto) 12.4 % (10.0-50.0) Monocytes (%) (Auto) 8.6 % (0.0-12.0) Eosinophils (%) (Auto) 2.0 % (0.0-7.0) Basophils (%) (Auto) 0.5 % (0.0-2.0) Neutrophils # (Auto) 10.6 10 ^3/uL (1.6-8.6) Lymphocytes # (Auto) 1.7 10 ^3/uL (0.4-5.4) Monocytes # (Auto) 1.2 10 ^3/uL (0-1.3) Eosinophils # (Auto) 0.3 10 ^3/uL (0-0.8) Basophils # (Auto) 0.1 10 ^3/uL (0-0.2) Nucleated Red Blood Cells 0.0 % Other Laboratory Tests 04/24/25 05:15 04/23/25 15:21 Brief Hx & Hospital Course: PT WAS SEEN IN THE CLINIC WHEN HE WAS SCHEDULED TO [facility]IOL[facility] FOLLOWING REST IMAGING PT BECOME DIAPHORETIC HE BRIEFLY BECOME UNRESPONSIVE 20 SECS SIGN SX COMPLEX DIZZINESS LEFT FACIAL NUMBNESS UNSTEADY GAIT LEFT ORBITAL PAIN/HYPERSENSITIVITY DYSPHAGIA 2 EPISODES ABOUT A MONTH APART PMH; DIABETES HTN OBESITY HYPOTHYROID SLEEP APNEA CT HEAD NEGATIVE CAROTID NEGATIVE CTA HEAD NEGATIVE LHC IN THE PAST WAS NEGATIVE MILD LEUKOCYTOSIS SECONDARY TO DEMARGINATION UA NEGATIVE CXR NEGATIVE Assessment/Plan IV FLUID BRIEF ABX MAY DC HOME SX CONSISTENT WITH VASOVAGAL EPISODE Final Diagnosis/Problems List Syncopal episode VASOVAGAL [facility] Discharge Disposition: Home Discharge Instruct/Medications Diet: Cardiac 2g Na,low cholest Activity: Light activity Follow Up/Referral: 1 WEEK Medications: CONT HOME MEDS Scheduled Alprazolam (Alprazolam), 1 TAB PO DAILY, (Reported) Clopidogrel Bisulfate (Plavix), 1 TAB PO DAILY, (Reported) Ezetimibe (Ezetimibe), 10 MG PO DAILY, (Reported) Olmesartan Medoxomil (Olmesartan Medoxomil), 1 TAB PO DAILY, (Reported) Olmesartan Medoxomil (Benicar), 1 TAB PO DAILY, (Reported) Scheduled PRN Tramadol Hcl (Tramadol Hcl), 50 MG PO Q6HP PRN for FOR INSOMNIA, (Reported) Miscellaneous Medications Cholecalciferol (D3 5000), 5,000 UNIT PO, (Reported) Coenzyme Q10 (Ubidecarenone) (Coq-10), 900 MG OR, (Reported) Curcuma Longa (Turmeric) Extra (Turmeric), 3,000 MG OR, (Reported) Ginkgo Biloba Extract (Ginkgo Biloba), 120 MG PO, (Reported) Metformin Hydrochloride (Metformin Hcl), 500 PO, (Reported) Methimazole (Methimazole), 5 PO, (Reported) Metoprolol Succinate (Metoprolol Succinate Er), 50 PO, (Reported) Pantoprazole Sodium Sesquihydr (Pantoprazole Sodium), 40 PO, (Reported) S-Adenosylmethionine (Clyde E), 400 MG OR, (Reported) Discontinued Medications Methylprednisolone (Medrol Dosepak), 4 MG PO UD Discontinued Reason: Auto Discontinued Discharge Statement: "Patient was advised to return to the ER or call 911 if any headaches, dizziness, shortness of breath, chest pain, abdominal pain, bleeding, fevers, or worsening of medical condition. Patient was counseled about treatment plan, medications, possible side effects, patientverbalized understanding. All questions were answered to the best of my ability. This discharge took greater then 30 minutes in planning, reviewing documentation, counseling the patient, and discussing with other team members." ASSESSMENT ASSESSMENT Assessment Syncopal episode VASOVAGAL [facility]OPE BALDOMERO GONZALES MD Apr 25, 2025 15:14
== END 2025-04-25 16:30 | disposition home or self-care (01) | DRG 312 ==
LOC: ER 14:36 → EDBD 14:36 → OVERFLOW 19:47 → TELE-WESTW 21:22
PROVIDERS: ADMIT Internal Medicine Cardiovascular Disease; ATTEND Internal Medicine Cardiovascular Disease
DX: R55 Syncope and collapse (principal); E11.9 Type 2 diabetes mellitus without complications; I10 Essential (primary) hypertension; E78.5 Hyperlipidemia, unspecified; E03.9 Hypothyroidism, unspecified; G47.30 Sleep apnea, unspecified; E66.9 Obesity, unspecified; D72.829 Elevated white blood cell count, unspecified; R13.10 Dysphagia, unspecified; T78.49XA Other allergy, initial encounter; Z88.1 Allergy status to other antibiotic agents; Z79.84 Long term (current) use of oral hypoglycemic drugs; Z79.899 Other long term (current) drug therapy; Z68.27 Body mass index [BMI] 27.0-27.9, adult; X58.XXXA Exposure to other specified factors, initial encounter
CPT/HCPCS: 36415; 70450; 71045; 80048; 81001; 82962; 84484; 85025; 93005; 93886; 93971; 96360; G0378; G0463

== ENCOUNTER 2025-06-21 07:13 | Emergency (ER) | payer MEDICARE, BC ==
[~2025-06-21] VITALS: Ht 170.2 cm; Wt 75.0 kg
--- NOTE | 2025-06-21 07:44 | ED.PDOC ---
General HPI Comments 70 y.o male with PMHx of HTN, CVA, kidney stone, and HLD, presents to the ED for a chief complaint of RLQ pain that woke him up at 0300 today. Patient had diarrhea yesterday and also has urinary retention. He notes dribbling, states this morning had urgency to urinate however was unable to have a full output. He states no diarrhea episodes as of this morning but does present with nausea. He took hydrocodone prior to ED arrival and had pain relief. He denies any fever, chills or hematuria. Chief Complaint: Urinary Time Seen by MD: 07:55 Primary Care Provider: BALDOMERO Reviewed notes: Nurses Notes, Medications, Allergies Allergies: Coded Allergies: Cetirizine (Verified Allergy, Unknown, 05/30/23) Home Meds Reported Medications Coenzyme Q10 (Ubidecarenone) (COQ-10) 400 Mg Cap, 900 MG OR, CAP 08/11/23 Curcuma Longa (Turmeric) Extra (TURMERIC) 500 Mg Cap, 3000 MG OR, CAP 08/11/23 S-Adenosylmethionine (EYAL E) 400 Mg Tab, 400 MG OR, TAB 08/11/23 Cholecalciferol (D3 5000) 5,000 Unit Cap, 5000 UNIT PO, CAP 08/11/23 Ginkgo Biloba Extract (Ginkgo Biloba) 120 Mg Cap, 120 MG PO, CAP 08/11/23 Alprazolam (Alprazolam) 0.25 Mg Tab, 1 TAB PO DAILY for anxiety, #30 TAB 08/11/23 Tramadol Hcl (Tramadol Hcl) 50 Mg Tab, 50 MG PO Q6HP PRN for FOR INSOMNIA, MG 08/11/23 Clopidogrel Bisulfate (Plavix) 75 Mg Tab, 1 TAB PO DAILY, #90 TAB 1 Refill 08/11/23 Olmesartan Medoxomil (Benicar) 20 Mg Tab, 1 TAB PO DAILY, #30 TAB 5 Refills 08/11/23 Ezetimibe (Ezetimibe) 10 Mg Tab, 10 MG PO DAILY 08/11/23 Olmesartan Medoxomil (Olmesartan Medoxomil) 20 Mg Tab, 1 TAB PO DAILY 08/10/23 Metoprolol Succinate (Metoprolol Succinate Er) 50 Mg Tab, 50 PO 08/10/23 Methimazole (Methimazole) 5 Mg Tab, 5 PO 08/10/23 Metformin Hydrochloride (Metformin Hcl) 500 Mg Tab, 500 PO 08/10/23 Pantoprazole Sodium Sesquihydr (Pantoprazole Sodium) 40 Mg Tab, 40 PO 08/10/23 Information Source: Patient Mode of Arrival: Ambulatory Timing: Days (3) Duration: Since onset Onset: Spontaneous Symptoms: Inability to void History of: None Location: (R) Flank Location male: R Scrotum associated signs and symptoms: Flank Pain, Inability to Void Past Medical History PAST MEDICAL HISTORY: CVA, DM, High Lipids, HTN, Thyroid Surgical History: Denies all surgeries Family History Family History: Reviewed,noncontributory to illness Social History Smoker: Non-Smoker Alcohol: Denies ETOH Use Drugs: Denies Drug Use Lives In: Home Constitutional: denies: chills, diaphoresis, fatigue, fever, malaise, sweats, weakness, others EENTM: denies: blurred vision, double vision, ear bleeding, ear discharge, ear drainage, ear pain, ear ringing, eye pain, eye redness, hearing loss, mouth pain, mouth swelling, nasal discharge, nose bleeding, nose congestion, nose pain, photophobia, tearing, throat pain, throat swelling, voice changes, others Respiratory: denies: cough, hemoptysis, orthopnea, SOB at rest, shortness of breath, SOB with excertion, stridor, wheezing, others Cardiovascular: denies: chest pain, dizzy spells, diaphoresis, Dyspnea on exertion, edema, irregular heart beat, left arm pain, lightheadedness, palpitations, PND, syncope, others Gastrointestinal: reports: abdominal pain, diarrhea; denies: abdomen distended, blood streaked bowels, constipated, dysphagia, difficulty swallowing, hematemesis, melena, nausea, poor appetite, poor fluid intake, rectal bleeding, rectal pain, vomiting, others Genitourinary: reports: flank pain, pain, others (urinary retention ); denies: burning, dysuria, frequency, hematuria, incontinence, penile discharge, penile sore, testicle pain, testicle swelling, urgency Neurological: denies: dizziness, fainting, headache, left sided numbness, left sided weakness, numbness, paresthesia, pre-existing deficit, right sided numbness, right sided weakness, seizure, speech problems, tingling, tremors, weakness, others Musculoskeletal: denies: back pain, gout, joint pain, joint swelling, muscle pain, muscle stiffness, neck pain, others Integumetry: denies: bruises, change in color, change in hair/nails, dryness, laceration, lesions, lumps, rash, wounds, others Allergic/Immunocompromised: denies: Difficulty Healing, Frequent Infections, Hives, Itching, others Hematologic/Lymphatic: denies: anemia, blood clots, easy bleeding, easy bruising, swollen glands, others Endocrine: denies: excessive hunger, excessive sweating, excessive thirst, excessive urination, flushing, intolerance to cold, intolerance to heat, unexplained weight gain, unexplained weight loss, others Psychiatric: denies: anxiety, bipolar disorder, depression, hopeless, panic disorder, schizophrenia, sleepless, suicidal, others All Other Systems: Reviewed and Negative Physical Exam General Appearance: Mild Distress, Normal HEENT: Normal ENT Inspection, Pharynx Normal, TMs Normal Neck: Full Range of Motion, Non-Tender, Normal, Normal Inspection Respiratory: Chest Non-Tender, Lungs Clear, No Accessory Muscle Use, No Respiratory Distress, Normal Breath Sounds Cardiovascular: No Edema, No JVD, No Murmur, No Gallop, Normal Peripheral Pulses, Regular Rate/Rhythm Breast Exam: Deferred Gastrointestinal: Tenderness (Tenderness to palpation to the right lower quadrant, no CVA tenderness) Genitalia: Deferred Pelvic: Deferred Rectal: Deferred Extremities: No calf tenderness, Normal capillary refill, Normal inspection, Normal range of motion, Non-tender, No pedal edema Musculoskeletal : Apperance: Normal Neurologic: Alert, manager strategy II-XII nml as Tested, No Motor Deficits, Normal Affect, Normal Mood, No Sensory Deficits Cerebellar Function: Normal Reflexes: Normal Skin: Dry, Normal Color, Warm Lymphatic: No Adenopathy Was a procedure done? Was a procedure done?: No Differential Diagnosis Kidney stone (Female): N/A Kidney stone (Male): Appendicitis train, Bowel obstruction, Pancreatitis, Pyelonephritis, Strain, Urinary obstruction, Urolithiasis, Urinary tract infection Urinary Problem (Male): Bladder Obstruction, Prostatitis, Urethritis, Urinary Retention, Urolithiasis, UTI X-Ray, Labs, Meds, VS Vital Signs Date Time Temp Pulse Resp B/P (MAP) Pulse Ox O2 Delivery O2 Flow Rate FiO2 06/21/25 10:23 98.5 59 18 115/74 (88) 98 98.5 06/21/25 07:21 98.7 70 18 124/82 97 98.7 Lab Test 06/21/25 13:00 06/21/25 08:09 06/21/25 08:08 Range/Units Sodium Level 141 141 136-145 mmol/L Potassium Level 3.7 4.0 3.5-5.1 mmol/L Chloride Level 109 H 104 98-107 mmol/L Carbon Dioxide Level 25 26 20-31 mmol/L Anion Gap 7 11 5-15 Blood Urea Nitrogen 10 16 9-23 mg/dL Creatinine 0.93 1.54 H 0.700-1.30 mg/dL Glomerular Filtration Rate Calc 88 48 >90 mL/min BUN/Creatinine Ratio 10.8 10.4 10.0-20.0 Serum Glucose 84 129 H 74-106 mg/dL Calcium Level 9.2 8.9 8.7-10.4 mg/dL White Blood Count 8.7 4.4-10.8 10^3/uL Red Blood Count 5.21 4.5-5.90 10^6/uL Hemoglobin 15.5 13.5-17.5 g/dL Hematocrit 45.6 41.0-53.0 % Mean Corpuscular Volume 87.5 80.0-100.0 fL Mean Corpuscular Hemoglobin 29.8 28.0-32.0 pg Mean Corpuscular Hemoglobin Concent 34.0 32.0-36.0 g/dL Red Cell Distribution Width 14.6 H 11.8-14.3 % Platelet Count 274 140-450 10^3/uL Mean Platelet Volume 6.6 L 6.9-10.8 fL Neutrophils (%) (Auto) 73.0 37.0-80.0 % Lymphocytes (%) (Auto) 17.2 10.0-50.0 % Monocytes (%) (Auto) 7.9 0.0-12.0 % Eosinophils (%) (Auto) 1.3 0.0-7.0 % Basophils (%) (Auto) 0.6 0.0-2.0 % Neutrophils # (Auto) 6.3 1.6-8.6 10 ^3/uL Lymphocytes # (Auto) 1.5 0.4-5.4 10 ^3/uL Monocytes # (Auto) 0.7 0-1.3 10 ^3/uL Eosinophils # (Auto) 0.1 0-0.8 10 ^3/uL Basophils # (Auto) 0.1 0-0.2 10 ^3/uL Nucleated Red Blood Cells 0.0 % Total Bilirubin 0.5 0.2-1.0 mg/dL Aspartate Amino Transferase (AST) 16 13-40 U/L Alanine Aminotransferase (ALT) 16 7-40 U/L Alkaline Phosphatase 36 L 46-116 U/L Total Protein 6.8 5.7-8.2 g/dL Albumin 4.1 3.2-4.8 g/dL Urine Color Yellow Yellow Urine Clarity Turbid H Clear Urine pH 6.0 5.0-9.0 Urine Specific Mclean 1.037 H 1.001-1.035 Urine Protein 1+ H Negative Urine Ketones 1+ H Negative Urine Blood 2+ H Negative /uL Urine Nitrite Negative Negative Urine Bilirubin Negative Negative Urine Urobilinogen 2 H Negative mg/dL Urine Leukocyte Esterase Trace Negative /uL Urine RBC 167 0 - 3 /hpf Urine Microscopic WBC 7 H 0-3 /HPF Urine Squamous Epithelial Cells Few <5 /hpf Urine Calcium Oxalate Crystals Mod None Seen Urine Bacteria Few H None Seen /hpf Urine Hyaline Casts Few 0 - 2 /lpf Urine Mucus Few None Seen Urine Glucose Normal Normal mg/dL Current Medications Medications (Trade) Dose Ordered Sig/Jasen Route Start Time Stop Time Status Last Admin Sodium Chloride 1,000 ml @ 1,000 mls/hr Q1H ONCE IV 06/21/25 10:45 06/21/25 11:44 DC 06/21/25 11:[address] [address] Ph: [phone] DIAGNOSTIC IMAGING Diagnostic Imaging Report : [id number] Signed PATIENT: CT BOWEN ACCT: [id number] UNIT: [id number] : 1955 LOC: ER ROOM / BED: / AGE / SEX: 70 / M ADM STATUS: REG ER SERVICE [id number] ORDERING PHYSICIAN: SULAIMAN BRYANT MD PROCEDURE(s): ABPL - CT AB PEL WO CON-NO ORAL OR IV REASON: R/O APPENDICITIS; NEPHROLITHIASIS ORDER NUMBER(s): [id number], ACCESSION NUMBER(s): [id number] CLINICAL INFORMATION: Right flank pain radiating to the right groin. Concern for appendicitis or nephrolithiasis. TECHNIQUE: Axial CT images of the abdomen and pelvis were obtained without IV contrast. Coronal and sagittal reformatted images were obtained, reviewed, and stored. Evaluation of the parenchymal organs is limited without IV contrast. Evaluation of the bowel and mesentery is limited without oral contrast. All CT scans at this medical facility are performed using dose modulation techniques as appropriate to a performed exam including the following: Automated exposure control was utilized; adjustment of the MA and/or KV according to patient size; and use of iterative reconstruction technique. CTDIvol = 10.23 mGy DLP = 530.51 mGy-cm COMPARISON: None FINDINGS: Lung bases: Lung bases are clear. Liver: Liver is borderline mildly enlarged, measuring up to 16.7 cm in craniocaudal dimension. Biliary: No calcified gallstones or biliary ductal dilatation. Spleen: Unremarkable. Pancreas: Grossly unremarkable in its noncontrast enhanced appearance. Adrenal glands: Bilateral adrenal nodules, measuring up to 0.8 cm on the right and 0.8 cm on the left with indeterminate density, likely small adenomas. Kidneys and bladder: Mild right hydronephrosis and hydroureter. There is a 3 mm calculus in the right posterior bladder near the right ureterovesical junction, possibly a recently passed calculus. No other renal or ureteral calculi are seen. There is a possible solid mass in the lower pole of the right kidney measuring up to 4.6 cm, although not well evaluated on noncontrast enhanced CT. Aorta/Vascular: Scattered atherosclerotic calcification. No abdominal aortic aneurysm. Lymph nodes: Mildly prominent right external iliac lymph node measures up to 1.2 x 0.9 cm, with normal reniform shape and fatty hilum, likely reactive. Bowel/mesentery: Nonspecific nondilated fluid-filled small bowel loops. No small bowel obstruction. Appendix is visualized and appears unremarkable. Mild wall thickening and minimal inflammatory stranding involving the ascending colon, hepatic flexure, and proximal to mid transverse colon, suspected colitis in the appropriate clinical setting. Pelvic organs: Grossly unremarkable. Abdominal wall: No mass or hernia. Bones: No acute fracture or suspicious intraosseous lesion. IMPRESSION: 1. 3 mm calculus in the right posterior bladder near the ureterovesical junction, possibly a recently passed calculus, with mild right hydronephrosis and hydroureter. 2. Suspected solid mass in the right kidney. Renal cell carcinoma not excluded, although not well evaluated without IV contrast. Correlate with clinical findings. Renal mass protocol CT or MRI could be obtained to further character ize. Urology consultation could also be considered if clinically indicated. 3. Possible colitis involving the ascending colon, hepatic flexure, and transverse colon, may be infectious or inflammatory in nature. Correlate with clinical findings. 4. Mildly prominent right external iliac lymph node, likely reactive based on morphology. 5. Small bilateral adrenal nodules, most likely benign etiology based on size. 12 month follow-up adrenal CT could be considered per ACR white paper on incidentally detected adrenal masses. 6. Additional findings as described above. ATED BY: ULISES FRANCIS DO DICTATED DATE/TIME: 06/21/25910 SIGNED BY: ULISES FRANCIS DO SIGNED DATE/TIME: 06/21/25910 CC: 70-year-old male presents here with right lower quadrant pain. Patient states he woke up around 3:00 a.m. with sudden pain. Yesterday he had diarrhea. He states he has a history of kidney stones and it feels similar except for the pain was higher into the back. He is having trouble with urinating today and having trouble with a triple. However he denies any burning with urination. On my examination he is tender to the right lower quadrant. Differential includes appendicitis, nephrolithiasis, pyelonephritis UTI. At this time I have ordered a CBC, CMP, urinalysis, as well as a CT abdomen pelvis noncontrast and with contrast IV only. At this time CBC has returned within normal limits. CMP demonstrates elevated creatinine of 1.54. I reviewed his past records 1 month ago was proximally 1.19. It has been up to 1.30 in the past. Urine positive for ketones. At this time a CT abdomen pelvis noncontrast was done initially and contrast study was not done as we are still waiting on labs. However at this time noncontrast study does demonstrate 3 mm calculus in the right posterior bladder near the UVJ. Also demonstrates suspected solid mass in the right kidney renal cell carcinoma not excluded. Also possible colitis. As well as small bilateral adrenal nodules. I had a long discussion with the patient regarding all of these results. I did offer him admission given his acute kidney injury and CT abdomen pelvis which does demonstrate mild right hydronephrosis and hydroureter. Patient however refused and prefers to go home. Other causes for his acute kidney injury include dehydration. At this time I have ordered 1 L normal saline. In repeat BMP has been ordered. Given that we do have findings on our CT noncontrast at this time, I suspect that is the cause of his pain and I have canceled the IV contrast study as the appendix is visualized and demonstrates that it is unremarkable. At this time patient is given 1 L of IV fluids. I have repeated the BMP and repeat creatinine is improved at 0.93. At this time I will be discharging him home. I have given him a copy of the CT report today. Advised him to follow up with Dr. Fowler for follow up on his adrenal mass and renal mass. I have given her a prescription for Flomax. Advised him to use Tylenol for pain control. Time of 1ST Reevaluation: 08:30 Reevaluation 1ST: Unchanged Patient Education/Counseling: Diagnosis, Treatment, Prognosis Family Education/Counseling: No Family Present SEPSIS Sepsis Screen Date sepsis recognized/suspect: Jun 21, 2025 Time Sepsis recognized/suspect: 721 Recent Procedure: No On Antibiotic Therapy: No Respiratory Rate >20: No Heart Rate >90: No Temp<36 C (96.8 F) or >38.3 C: No SBP <90 or MAP <65 mmHG: No New Acute Mental Status Change: No Is the patient on CPAP, BIPAP,: No Physician Orders Urine Bacterial Culture (06/21/25 07:44) Ct Ab Pel Wo Con-No Oral Or Iv (06/21/25 08:06) Vital Signs Date Time Temp Pulse Resp B/P (MAP) Pulse Ox O2 Delivery O2 Flow Rate FiO2 06/21/25 10:23 98.5 59 18 115/74 (88) 98 98.5 06/21/25 07:21 98.7 70 18 124/82 97 98.7 Laboratory Tests Test 06/21/25 08:09 White Blood Count 8.7 10^3/uL (4.4-10.8) Medications Medications Dose Ordered Sig/Jasen Route Start Time Stop Time Status Last Admin Dose Admin Sodium Chloride 1,000 ml @ 1,000 mls/hr Q1H ONCE IV 06/21/25 10:45 06/21/25 11:44 DC 06/21/25 11:07 Departure 1 Departure Time of Disposition: 13:59 Impression: Primary Impression: Nephrolithiasis Additional Impressions: Renal mass Acute kidney failure Qualified Codes: N17.9 - Acute kidney failure, unspecified Dehydration Colitis Hydronephrosis Qualified Codes: N13.2 - Hydronephrosis with renal and ureteral calculous obstruction Disposition: HOME / SELF CARE / HOMELESS Condition: Fair Additional Instructions: Follow up with the primary care physician in 2-3 days. Please follow up with the primary care physician to evaluate the renal mass. Your kidney function has improved today during to normal levels after the IV fluids. e-Prescriptions Tamsulosin Hcl (Flomax) 0.4 Mg Cap 1 CAP PO qhs for 7 Days, #7 CAP 0 Refills Prov: SULAIMAN BRYANT MD 06/21/25 Discharged With: Self Critical Care Note Critical Care Time?: No Stability Stability form required: No Heart Score Heart Score: Heart Score Response (Comments) Value History N/A 0 EKG N/A 0 Age N/A 0 Risk Factors N/A 0 Troponin N/A 0 Total 0 I personally scribed for SULAIMAN BRYANT MD ([email or web address]) on 06/21/25 at 07:44. Electronically submitted by Eliana Posey ([facility] I personally scribed for SULAIMAN BRYANT MD ([email or web address]) on 06/21/25 at 08:00. Electronically submitted by Eliana Posey ([facility] I personally scribed for SULAIMAN BRYANT MD ([email or web address]) on 06/21/25 at 09:49. Electronically submitted by Eliana Posey ([facility]). SULAIMAN BRYANT MD Jun 21, 2025 07:44
[2025-06-21 08:29] LABS: Hematocrit 45.6 % (41.0-53.0); Hemoglobin 15.5 g/dL (13.5-17.5); Mean Corpuscular Hemoglobin 29.8 pg (28.0-32.0); Mean Corpuscular Volume 87.5 fL (80.0-100.0); Nucleated Red Blood Cells % 0.0 %
[2025-06-21 08:44] LABS: Alanine Aminotransferase 16 U/L (7-40); Albumin 4.1 g/dL (3.2-4.8); Anion Gap 11 (5-15); BUN/Creatinine Ratio 10.4 (10.0-20.0); Blood Urea Nitrogen 16 mg/dL (9-23); Calcium 8.9 mg/dL (8.7-10.4); Carbon Dioxide 26 mmol/L (20-31); Chloride 104 mmol/L (98-107); Potassium 4.0 mmol/L (3.5-5.1); Sodium 141 mmol/L (136-145); Total Protein 6.8 g/dL (5.7-8.2)
[2025-06-21 08:45] LABS: Bilirubin, Total 0.5 mg/dL (0.2-1.0)
[2025-06-21 08:49] LABS: Alkaline Phosphatase 36 U/L (46-116); Glucose 129 mg/dL (74-106)
--- NOTE | 2025-06-21 09:14 | DVH ---
CLINICAL INFORMATION: Right flank pain radiating to the right groin. Concern for appendicitis or nephrolithiasis. TECHNIQUE: Axial CT images of the abdomen and pelvis were obtained without IV contrast. Coronal and sagittal reformatted images were obtained, reviewed, and stored. Evaluation of the parenchymal organs is limited without IV contrast. Evaluation of the bowel and mesentery is limited without oral contrast. All CT scans at this medical facility are performed using dose modulation techniques as appropriate to a performed exam including the following: Automated exposure control was utilized; adjustment of the MA and/or KV according to patient size; and use of iterative reconstruction technique. CTDIvol = 10.23 mGy DLP = 530.51 mGy-cm COMPARISON: None FINDINGS: Lung bases: Lung bases are clear. Liver: Liver is borderline mildly enlarged, measuring up to 16.7 cm in craniocaudal dimension. Biliary: No calcified gallstones or biliary ductal dilatation. Spleen: Unremarkable. Pancreas: Grossly unremarkable in its noncontrast enhanced appearance. Adrenal glands: Bilateral adrenal nodules, measuring up to 0.8 cm on the right and 0.8 cm on the left with indeterminate density, likely small adenomas. Kidneys and bladder: Mild right hydronephrosis and hydroureter. There is a 3 mm calculus in the right posterior bladder near the right ureterovesical junction, possibly a recently passed calculus. No other renal or ureteral calculi are seen. There is a possible solid mass in the lower pole of the right kidney measuring up to 4.6 cm, although not well evaluated on noncontrast enhanced CT. Aorta/Vascular: Scattered atherosclerotic calcification. No abdominal aortic aneurysm. Lymph nodes: Mildly prominent right external iliac lymph node measures up to 1.2 x 0.9 cm, with normal reniform shape and fatty hilum, likely reactive. Bowel/mesentery: Nonspecific nondilated fluid-filled small bowel loops. No small bowel obstruction. Appendix is visualized and appears unremarkable. Mild wall thickening and minimal inflammatory stranding involving the ascending colon, hepatic flexure, and proximal to mid transverse colon, suspected colitis in the appropriate clinical setting. Pelvic organs: Grossly unremarkable. Abdominal wall: No mass or hernia. Bones: No acute fracture or suspicious intraosseous lesion. IMPRESSION: 1. 3 mm calculus in the right posterior bladder near the ureterovesical junction, possibly a recently passed calculus, with mild right hydronephrosis and hydroureter. 2. Suspected solid mass in the right kidney. Renal cell carcinoma not excluded, although not well evaluated without IV contrast. Correlate with clinical findings. Renal mass protocol CT or MRI could be obtained to further characterize. Urology consultation could also be considered if clinically indicated. 3. Possible colitis involving the ascending colon, hepatic flexure, and transverse colon, may be infectious or inflammatory in nature. Correlate with clinical findings. 4. Mildly prominent right external iliac lymph node, likely reactive based on morphology. 5. Small bilateral adrenal nodules, most likely benign etiology based on size. 12 month follow-up adrenal CT could be considered per ACR white paper on incidentally detected adrenal masses. 6. Additional findings as described above.
[2025-06-21 10:52] LABS: Urine Protein, UAD 1+ (Negative)
[2025-06-21] MEDS: SODIUM CHLORIDE 0.9% 1,000 ML IV ONE (11:07)
[2025-06-21 13:38] LABS: Potassium 3.7 mmol/L (3.5-5.1); Sodium 141 mmol/L (136-145)
[2025-06-21 13:39] LABS: Anion Gap 7 (5-15); Calcium 9.2 mg/dL (8.7-10.4); Carbon Dioxide 25 mmol/L (20-31)
[2025-06-21 13:44] LABS: BUN/Creatinine Ratio 10.8 (10.0-20.0); Blood Urea Nitrogen 10 mg/dL (9-23); Glucose 84 mg/dL (74-106)
[2025-06-21 13:57] LABS: Chloride 109 mmol/L (98-107)
[2025-06-21] MEDS ORDERED: TAMS-35 PO (14:01)
[2025-06-21 14:16] VITALS: BP 119/64; PULSE 64; RESP 18; TEMP 98.2; O2SAT 99
== END 2025-06-21 14:17 | disposition home or self-care (01) ==
LOC: ER 07:15
DX: N13.2 Hydronephrosis with renal and ureteral calculous obstruction (principal); N17.9 Acute kidney failure, unspecified; N28.89 Other specified disorders of kidney and ureter; K52.9 Noninfective gastroenteritis and colitis, unspecified; E86.0 Dehydration; I10 Essential (primary) hypertension; E11.9 Type 2 diabetes mellitus without complications; E78.5 Hyperlipidemia, unspecified; Z79.899 Other long term (current) drug therapy; Z79.02 Long term (current) use of antithrombotics/antiplatelets; Z87.442 Personal history of urinary calculi; Z86.73 Personal history of transient ischemic attack (TIA), and cerebral infarction without residual deficits
CPT/HCPCS: 36415; 74176; 80048; 80053; 81001; 85025; 87086; 96360; 99284; J7030